=== PATIENT | female | born 1975 | race American Indian/Alaskan Native ===

== ENCOUNTER 2018-04-11 07:24 | Inpatient (IN) | payer MEDICAID ==
[2018-04-11] MEDS ORDERED: Sodium Chloride 0.9% 1,000 ML IV STA (07:50)
--- NOTE | 2018-04-11 07:55 | ED PDOC ---
Arrival/HPI - General Chief Complaint: Abdominal Pain Time Seen by Provider: 04/11/18 07:26 Historian: Patient - History of Present Illness Narrative History of Present Illness (Text): 04/11/18 07:51 A 42 year old female, whose past medical history includes diabetes and hypertension, presents to the emergency department complaining of stomach pain, nausea, vomiting, and diarrhea since 2 days ago. Patient reports pain is worse in her upper abdominal area and reports being seen at another institution. Patient states she is uncertain of her diagnosis and present for evaluation. Patient denies any fever, chills, shortness of breath, chest pain, urinary symptoms, back pain, neck pain, headache, dizziness, or any other complaints. PMD: Boom Luz Time/Duration: Other (2 days) Symptom Onset: Gradual Symptom Course: Unchanged Activities at Onset: Light Context: Other (another medical institution) Past Medical History - Provider Review Nursing Documentation Reviewed: Yes - Cardiac Hx Cardiac Disorders: Yes Hx Heart Murmur: Yes Hx Hypertension: Yes - Pulmonary Hx Respiratory Disorders: No - Neurological Hx Neurological Disorder: No - HEENT Hx HEENT Disorder: No - Renal Hx Renal Disorder: Yes Hx Kidney Stones: Yes - Endocrine/Metabolic Hx Endocrine Disorders: Yes Hx Diabetes Mellitus Type 2: Yes - Hematological/Oncological Hx Blood Disorders: Yes Hx Anemia: Yes Hx Blood Transfusions: Yes - Integumentary Hx Dermatological Disorder: No - Musculoskeletal/Rheumatological Hx Musculoskeletal Disorders: Yes Hx Back Pain: Yes - Gastrointestinal Hx Gastrointestinal Disorders: Yes Hx Vomiting: Yes - Genitourinary/Gynecological Hx Genitourinary Disorders: Yes Other/Comment: IRREGULAR MENSTRUATION - Psychiatric Hx Psychophysiologic Disorder: No Hx Substance Use: No - Surgical History Other/Comment: R/T KIDNEY STONE REMOVAL Family/Social History - Physician Review Nursing Documentation Reviewed: Yes Family/Social History: No Known Family HX Smoking Status: Never Smoked Hx Alcohol Use: Yes Frequency of alcohol use: Socially Hx Substance Use: No Allergies/Home Meds Allergies/Adverse Reactions: Allergies No Known Allergies Allergy (Verified 04/11/18 07:34) Home Medications: Home Meds Medication Instructions Recorded Confirmed Cholecalciferol (Vitamin D3) 1 cap PO Q7D 04/11/18 04/11/18 [Vitamin D3] Ferrous Sulfate [Feosol] 1 tab PO DAILY 04/11/18 04/11/18 Lisinopril [Prinivil] 10 mg PO DAILY 04/11/18 04/11/18 metFORMIN [glucOPHAGE] 500 mg PO BID 04/11/18 04/11/18 Review of Systems - Physician Review All systems were reviewed & negative as marked: Yes - Review of Systems Constitutional: absent: Fevers, Night Sweats Respiratory: absent: SOB Cardiovascular: absent: Other Gastrointestinal: Abdominal Pain (stomach pain), Diarrhea, Nausea, Vomiting Genitourinary Female: absent: Urine Output Changes Musculoskeletal: absent: Back Pain, Neck Pain Neurological: absent: Headache, Dizziness Physical Exam Vital Signs Reviewed: Yes Vital Signs Temp Pulse Resp BP Pulse Ox 04/11/18 07:34 97.6 F 86 17 144/86 98 Temperature: Afebrile Blood Pressure: Normal Respiratory Rate: Normal Appearance: Positive for: Well-Appearing - Systems Exam Head: Present: Atraumatic, Normocephalic Pupils: Present: PERRL Extroacular Muscles: Present: EOMI Conjunctiva: Present: Normal Neck: Present: Normal Range of Motion Respiratory/Chest: Present: Clear to Auscultation, Good Air Exchange. No: Respiratory Distress, Accessory Muscle Use Cardiovascular: Present: Regular Rate and Rhythm, Normal S1, S2. No: Murmurs Abdomen: Present: Tenderness (+abdomen tender, worse epigastric region), Other (+morbidly obese) Back: Present: Normal Inspection Upper Extremity: Present: Normal Inspection. No: Cyanosis, Edema Lower Extremity: Present: Normal Inspection. No: Edema Neurological: Present: GCS=15, CN II-XII Intact, Speech Normal Skin: Present: Warm, Dry, Normal Color. No: Rashes Psychiatric: Present: Alert, Oriented x 3, Normal Insight, Normal Concentration Medical Decision Making ED Course and Treatment: 04/11/18 07:54 Impression: 42 year old female presenting to the emergency department with stomach pain, nausea, vomiting, and diarrhea. ro gastritis pancreatitis Plan: -- Labs -- CBC -- COAGs -- Zofran -- Protonix -- HCG, qualitative urine -- Urinalysis -- Reassess and disposition Progress Notes: 04/11/18 10:30 Procedure: Ultrasound Time: 04/11/2018 10:16:39 Dictator: Con Holloway MD Impression: Hepatomegaly/hepatic steatosis without focal liver abnormality. Incidental finding(s): Trace fluid in the gallbladder fossa. In the absence of other gallbladder findings significance/etiology is unknown. 04/11/18 12:18 labs suggest pancreatitis. us added. accepted by hospitalist. futher imaging deffered to inpt team. - Medication Orders Current Medication Orders: Sodium Chloride (Sodium Chloride 0.9%) 1,000 mls @ 1,000 mls/hr IV .Q1H STA Stop: 04/11/18 08:49 Ondansetron HCl (Zofran Inj) 4 mg IVP STAT STA Stop: 04/11/18 07:51 Pantoprazole Sodium (Protonix Inj) 40 mg IVP STAT STA Stop: 04/11/18 07:51 - Scribe Statement The provider has reviewed the documentation as recorded by the Cecy Stuart All medical record entries made by the Cecy were at my direction and personally dictated by me. I have reviewed the chart and agree that the record accurately reflects my personal performance of the history, physical exam, medical decision making, and the department course for this patient. I have also personally directed, reviewed, and agree with the discharge instructions and disposition. Disposition/Present on Arrival - Present on Arrival Any Indicators Present on Arrival: No History of DVT/PE: No History of Uncontrolled Diabetes: Yes Urinary Catheter: No History of Decub. Ulcer: No History Surgical Site Infection Following: None - Disposition Have Diagnosis and Disposition been Completed?: Yes Diagnosis: Pancreatitis Disposition: HOSPITALIZED Disposition Time: 11:00 Patient Problems: Current Active Problems Problem Status Onset Pancreatitis Acute Condition: STABLE
[2018-04-11 08:33] LABS: BASO # 0.01 K/mm3 (0.0-2.0); BASO % 0.1 % (0.0-3.0); EOS # 0.1 (0.0-0.7); EOS % 1.2 % (1.5-5.0); GRAN # 4.5 (1.4-6.5); HEMOGLOBIN 10.7 g/dL (12.0-16.0); LYMPH # 1.3 (1.2-3.4); LYMPH % 19.5 % (22.0-35.0); MEAN CELL VOLUME 91.7 fl (80.0-105.0); MEAN CORPUSCULAR HEMOGLOBIN 29.5 pg (25.0-35.0); MEAN CORPUSCULAR HGB CONC 32.1 g/dl (31.0-37.0); MEAN PLATELET VOLUME 9.9 fl (7.0-11.0); MONO # 0.8 (0.1-0.6); MONO % 12.2 % (1.0-6.0); RBC 3.63 10^6/uL (3.5-6.1); RED CELL DISTRIBUTION WIDTH 18.2 % (11.5-14.5); WHITE BLOOD COUNT 6.7 10^3/uL (4.5-11.0)
[2018-04-11 08:42] LABS: ALBUMIN 4.2 g/dL (3.0-4.8); ALT/SGPT 58 U/L (7-56); AST/SGOT 80 U/L (14-36); BLOOD UREA NITROGEN 14 mg/dL (7-21); CALCIUM 9.3 mg/dL (8.4-10.5); GFR NON-AFRICAN AMERICAN > 60; INR 1.14; LIPASE 1090 U/L (23-300); PARTIAL THROMBOPLASTIN TIME 28.1 Seconds (25.1-36.5); PROTHROMBIN TIME 13.2 SECONDS (9.4-12.5)
[2018-04-11] MEDS ORDERED: Morphine 4 mg/ml ISec IVP STA (08:44)
[2018-04-11 10:16] LABS: HDL CHOLESTEROL 85 mg/dL (29-60)
--- NOTE | 2018-04-11 10:20 | US ---
Date of service: 04/11/2018 HISTORY: pancreatitis COMPARISON: None. TECHNIQUE: Sonographic evaluation of the abdomen. FINDINGS: LIVER: Measures 21.7 cm. Hepatopedal blood flow. Fatty infiltration manifest ultrasonographically as increased echogenicity of the liver parenchyma. No mass. No intrahepatic bile duct dilatation. GALLBLADDER: Unremarkable. No gallstones. COMMON BILE DUCT: Measures 5.4 mm. No stones. No dilatation.Incidental finding(s): Trace pericholecystic fluid. PANCREAS: Unremarkable as visualized. No mass. No ductal dilatation. RIGHT KIDNEY: Measures 5.5 x 10.1cm. Normal echogenicity. No calculus, mass, or hydronephrosis. LEFT KIDNEY: Measures 6.1 x 11.6cm. Normal echogenicity. No calculus, mass, or hydronephrosis. SPLEEN: Normal in size and contour. No mass. AORTA: No aneurysmal dilatation. IVC: Unremarkable. OTHER FINDINGS: None. IMPRESSION: Hepatomegaly/hepatic steatosis without focal liver abnormality. Incidental finding(s): Trace fluid in the gallbladder fossa. In the absence of other gallbladder findings significance/etiology is unknown.
[2018-04-11 10:26] LABS: LDL CHOLESTEROL 129 mg/dL (0-129)
[2018-04-11 10:46] VITALS: BMI 38.9
--- NOTE | 2018-04-11 11:11 | CP.PCM.HP ---
<Derrick Ferris - Last Filed: 04/11/18 12:34> History of Present Illness - History of Present Illness History of Present Illness: 42 year old female with past medical history of HTN, DM, iron deficiency anemia, and nephrolithiasis presents to the hospital for a 2 history of worsening abdominal pain. Patient states she was standing when she first noted her abdominal pain. Patient states her pain became worse and was not able to sleep overnight. Patient tried Motrin for pain but it did not help. Pain is rated at 10/10 and characterized as sharp. Patient states pain is diffusely throughout her abdomen and her back. Patient admits to having a similar presentation in the past which she was hospitalized for several days. Patient admits to drinking several beers 3 days ago. Patient admits to nausea, vomiting, diarrhea, and dysuria at this time. Denies chest pain, shortness of breath, fever, chills. PMH: As above Surgical Hx: None Family Hx: Cancer, unknown which cancers specifically Social Hx: Denies illicit drug use and tobacco use. Occasional alcohol use Allergies: NKDA Medications: Lisinopril, Metformin Present on Admission - Present on Admission Any Indicators Present on Admission: No Review of Systems - Review of Systems Review of Systems: 12 point ROS as per HPI, otherwise negative Past Patient History - Past Social History Smoking Status: Never Smoked - CARDIAC Hx Cardiac Disorders: Yes Hx Heart Murmur: Yes Hx Hypertension: Yes - PULMONARY Hx Respiratory Disorders: No - NEUROLOGICAL Hx Neurological Disorder: No - HEENT Hx HEENT Problems: No - RENAL Hx Chronic Kidney Disease: Yes Hx Kidney Stones: Yes - ENDOCRINE/METABOLIC Hx Endocrine Disorders: Yes Hx Diabetes Mellitus Type 2: Yes - HEMATOLOGICAL/ONCOLOGICAL Hx Blood Disorders: Yes Hx Anemia: Yes Hx Blood Transfusions: Yes - INTEGUMENTARY Hx Dermatological Problems: No - MUSCULOSKELETAL/RHEUMATOLOGICAL Hx Musculoskeletal Disorders: Yes Hx Back Pain: Yes - GASTROINTESTINAL Hx Gastrointestinal Disorders: Yes Hx Vomiting: Yes - GENITOURINARY/GYNECOLOGICAL Hx Genitourinary Disorders: Yes Other/Comment: IRREGULAR MENSTRUATION - PSYCHIATRIC Hx Psychophysiologic Disorder: No Hx Substance Use: No - SURGICAL HISTORY Other/Comment: R/T KIDNEY STONE REMOVAL Meds Allergies/Adverse Reactions: Allergies Allergy/AdvReac Type Severity Reaction Status Date / Time No Known Allergies Allergy Verified 04/11/18 07:34 Physical Exam - Constitutional Appears: Non-toxic, No Acute Distress - Head Exam Head Exam: ATRAUMATIC, NORMAL INSPECTION, NORMOCEPHALIC - Eye Exam Eye Exam: EOMI, Normal appearance - ENT Exam ENT Exam: Mucous Membranes Moist - Respiratory Exam Respiratory Exam: Decreased Breath Sounds, NORMAL BREATHING PATTERN. absent: Rhonchi, Wheezes, Respiratory Distress - Cardiovascular Exam Cardiovascular Exam: RRR, +S1, +S2 - GI/Abdominal Exam GI & Abdominal Exam: Normal Bowel Sounds, Soft, Tenderness (Diffuse). absent: Distended, Guarding, Rebound - Extremities Exam Extremities exam: Positive for: normal inspection. Negative for: calf tenderness, pedal edema - Back Exam Back exam: CVA tenderness (L), CVA tenderness (R) Additional comments: Diffuse back pain - Neurological Exam Neurological exam: Alert, CN II-XII Intact, Oriented x3 - Psychiatric Exam Psychiatric exam: Normal Affect, Normal Mood - Skin Skin Exam: Intact, Normal Color, Warm Results - Vital Signs Recent Vital Signs: Last Vital Signs Temp 98.1 F 04/11/18 10:34 Pulse 90 04/11/18 10:34 Resp 17 04/11/18 07:34 BP 131/92 H 04/11/18 10:34 Pulse Ox 95 04/11/18 10:34 - Labs Result Diagrams: 04/11/18 08:10 04/11/18 08:10 Labs: Laboratory Results - last 24 hr 04/11/18 04/11/18 04/11/18 08:10 08:10 08:10 WBC 6.7 RBC 3.63 Hgb 10.7 L Hct 33.3 L MCV 91.7 MCH 29.5 MCHC 32.1 RDW 18.2 H Plt Count 144 MPV 9.9 Gran % 67.0 Lymph % (Auto) 19.5 L Sawyer % (Auto) 12.2 H Eos % (Auto) 1.2 L Baso % (Auto) 0.1 Gran # 4.50 Lymph # (Auto) 1.3 Sawyer # (Auto) 0.8 H Eos # (Auto) 0.1 Baso # (Auto) 0.01 PT 13.2 H INR 1.14 APTT 28.1 Sodium 130 L Potassium 4.5 Chloride 92 L Carbon Dioxide 26 Anion Gap 17 BUN 14 Creatinine 0.6 L Est GFR ( Amer) > 60 Est GFR (Non-Af Amer) > 60 Random Glucose 318 H* Calcium 9.3 Magnesium 1.8 Total Bilirubin 2.5 H Direct Bilirubin AST 80 H ALT 58 H Alkaline Phosphatase 267 H Total Protein 8.6 H Albumin 4.2 Globulin 4.4 Albumin/Globulin Ratio 1.0 L Triglycerides Cholesterol LDL Cholesterol Direct HDL Cholesterol Lipase 1090 H Beta HCG, Quant Alcohol, Quantitative 04/11/18 04/11/18 04/11/18 08:10 08:44 10:00 WBC RBC Hgb Hct MCV MCH MCHC RDW Plt Count MPV Gran % Lymph % (Auto) Sawyer % (Auto) Eos % (Auto) Baso % (Auto) Gran # Lymph # (Auto) Sawyer # (Auto) Eos # (Auto) Baso # (Auto) PT INR APTT Sodium Potassium Chloride Carbon Dioxide Anion Gap BUN Creatinine Est GFR ( Amer) Est GFR (Non-Af Amer) Random Glucose Calcium Magnesium Total Bilirubin Direct Bilirubin 1.5 H AST ALT Alkaline Phosphatase Total Protein Albumin Globulin Albumin/Globulin Ratio Triglycerides 120 Cholesterol 236 H LDL Cholesterol Direct 129 HDL Cholesterol 85 H Lipase Beta HCG, Quant < 2.39 Alcohol, Quantitative 04/11/18 10:00 WBC RBC Hgb Hct MCV MCH MCHC RDW Plt Count MPV Gran % Lymph % (Auto) Sawyer % (Auto) Eos % (Auto) Baso % (Auto) Gran # Lymph # (Auto) Sawyer # (Auto) Eos # (Auto) Baso # (Auto) PT INR APTT Sodium Potassium Chloride Carbon Dioxide Anion Gap BUN Creatinine Est GFR ( Amer) Est GFR (Non-Af Amer) Random Glucose Calcium Magnesium Total Bilirubin Direct Bilirubin AST ALT Alkaline Phosphatase Total Protein Albumin Globulin Albumin/Globulin Ratio Triglycerides Cholesterol LDL Cholesterol Direct HDL Cholesterol Lipase Beta HCG, Quant Alcohol, Quantitative < 10 Assessment & Plan - Assessment and Plan (Free Text) Plan: 42 year old female with past medical history of HTN, DM, iron deficiency anemia, and Nephrolithiasis presenting for pancreatitis. Pancreatitis NS @ 150 Morphine 3 mg q4h Abdomen US with no cholelithiasis. CBD within normal limits Lipid panel within normal limits Zofran NPO Will consider CT abdomen/pelvis if patient worsens Will obtain UA, urine drug screen GI consult, Dr. Bae Transaminitis Hepatitis panel Abdomen US normal Recheck in AM HTN Restart home lisinopril DM ISS, low Nephrolithiasis Questionable history of stent placement or chronic stones Will obtain UA Prophylaxis SCDs Protonix [place], PGY-3 <Brent Horan - Last Filed: 04/11/18 13:32> Results - Vital Signs Recent Vital Signs: Last Vital Signs Temp 98.1 F 04/11/18 11:02 Pulse 90 04/11/18 11:02 Resp 17 04/11/18 11:02 BP 135/92 H 04/11/18 11:02 Pulse Ox 95 04/11/18 11:02 - Labs Result Diagrams: 04/11/18 08:10 04/11/18 08:10 Labs: Laboratory Results - last 24 hr 04/11/18 04/11/18 04/11/18 08:10 08:10 08:10 WBC 6.7 RBC 3.63 Hgb 10.7 L Hct 33.3 L MCV 91.7 MCH 29.5 MCHC 32.1 RDW 18.2 H Plt Count 144 MPV 9.9 Gran % 67.0 Lymph % (Auto) 19.5 L Sawyer % (Auto) 12.2 H Eos % (Auto) 1.2 L Baso % (Auto) 0.1 Gran # 4.50 Lymph # (Auto) 1.3 Sawyer # (Auto) 0.8 H Eos # (Auto) 0.1 Baso # (Auto) 0.01 PT 13.2 H INR 1.14 APTT 28.1 Sodium 130 L Potassium 4.5 Chloride 92 L Carbon Dioxide 26 Anion Gap 17 BUN 14 Creatinine 0.6 L Est GFR ( Amer) > 60 Est GFR (Non-Af Amer) > 60 Random Glucose 318 H* Calcium 9.3 Magnesium 1.8 Total Bilirubin 2.5 H Direct Bilirubin AST 80 H ALT 58 H Alkaline Phosphatase 267 H Total Protein 8.6 H Albumin 4.2 Globulin 4.4 Albumin/Globulin Ratio 1.0 L Triglycerides Cholesterol LDL Cholesterol Direct HDL Cholesterol Lipase 1090 H Beta HCG, Quant Alcohol, Quantitative 04/11/18 04/11/18 04/11/18 08:10 08:44 10:00 WBC RBC Hgb Hct MCV MCH MCHC RDW Plt Count MPV Gran % Lymph % (Auto) Sawyer % (Auto) Eos % (Auto) Baso % (Auto) Gran # Lymph # (Auto) Sawyer # (Auto) Eos # (Auto) Baso # (Auto) PT INR APTT Sodium Potassium Chloride Carbon Dioxide Anion Gap BUN Creatinine Est GFR ( Amer) Est GFR (Non-Af Amer) Random Glucose Calcium Magnesium Total Bilirubin Direct Bilirubin 1.5 H AST ALT Alkaline Phosphatase Total Protein Albumin Globulin Albumin/Globulin Ratio Triglycerides 120 Cholesterol 236 H LDL Cholesterol Direct 129 HDL Cholesterol 85 H Lipase Beta HCG, Quant < 2.39 Alcohol, Quantitative 04/11/18 10:00 WBC RBC Hgb Hct MCV MCH MCHC RDW Plt Count MPV Gran % Lymph % (Auto) Sawyer % (Auto) Eos % (Auto) Baso % (Auto) Gran # Lymph # (Auto) Sawyer # (Auto) Eos # (Auto) Baso # (Auto) PT INR APTT Sodium Potassium Chloride Carbon Dioxide Anion Gap BUN Creatinine Est GFR ( Amer) Est GFR (Non-Af Amer) Random Glucose Calcium Magnesium Total Bilirubin Direct Bilirubin AST ALT Alkaline Phosphatase Total Protein Albumin Globulin Albumin/Globulin Ratio Triglycerides Cholesterol LDL Cholesterol Direct HDL Cholesterol Lipase Beta HCG, Quant Alcohol, Quantitative < 10 Attending/Attestation - Attestation I have personally seen and examined this patient.: Yes I have fully participated in the care of the patient.: Yes I have reviewed all pertinent clinical information: Yes Notes (Text): 04/11/18 13:27 42 year old female with past medical history of hypertension, diabetes and nephrolithiasis who presents abdominal pain radiating to back and nausea/vomiting x 3 days. Found to have elevated lipase and LFTs. Also admits to recent alcohol use few days prior. Consider alcohol pancreatitis. US abdomen reviewed showed fatty liver without cholelithiasis. Will keep NPO with IV fluids and analgesics. GI evaluation is requested. Will request for UA given prior history of nephrolithiasis although ultrasound was not suggestive of nephrolithiasis. Will monitor LFTs and obtain hepatitis panel. Patient was counselled on alcohol abstinence. Brent Horan MD Hospitalist.
[2018-04-11] MEDS: Morphine 4 mg/ml ISec IVP PRN ×4 (11:37→23:02)
[2018-04-11] MEDS: Sodium Chloride 0.9% 1,000 ML IV SCH (11:38)
[2018-04-11] MEDS: Insulin Reg-LOW-Coverage SC SCH ×3 (11:39→22:34)
--- NOTE | 2018-04-11 12:13 | CP.PCM.CON ---
History of Present Illness - History of Present Illness History of Present Illness: Asked by hospitalist team for a GI consultation on this patient. 42 year old female with history of obesity (BMI 39), DM, HTN, who presents to hospital with complaint of progressive abdominal pain which started 2 days ago. She endorses a sharp, 10/10 intensity epigastric pain that radiates to RUQ/back and worse after meal consumption. This was associated with multiple episodes of non- bloody emesis over the past 2 days. She denies fever/chills, weight loss, rectal bleeding, sick contacts, or change in bowel habits. She does report to heavy ETOH consumption the day before pain symptoms started and drinks ETOH 2-3 times per week. She also admits to similar prior episode a few months back but is unaware of any prior pancreatic abnormalities. No prior endoscopic evaluation. Social history: non-smoker, "social" ETOH use Family history: mother (ovarian cancer) Review of Systems - Review of Systems Review of Systems: - All other comprehensive 12 point review of systems performed, negative - Cardiovascular Cardiovascular: absent: Acrocyanosis, Chest Pain, Chest Pain at Rest, Chest Pain with Activity, Claudication, Diaphoresis, Dyspnea, Dyspnea on Exertion, Edema, Irregular Heart Rhythm, Pain Radiating to Arm/Neck/Jaw, Leg Edema, Leg Ulcers, Lightheadedness, Orthopnea, Palpitations, Paroxysmal Nocturnal Dyspnea, Pedal Edema, Radiating Pain, Rapid Heart Rate, Slow Heart Rate, Syncope, Other - Respiratory Respiratory: absent: Cough, Dyspnea, Hemoptysis, Dyspnea on Exertion, Wheezing, Snoring, Stridor, Pain on Inspiration, Chest Congestion, Excessive Mucous Production, Change in Mucous Color, Pain with Coughing, Other - Gastrointestinal Gastrointestinal: Abdominal Pain, Nausea, Vomiting - Musculoskeletal Musculoskeletal: absent: Abnormal Gait, Arthralgias, Atrophy, Back Pain, Deformity, Joint Swelling, Limited Range of Motion, Loss of Height, Muscle Cramps, Muscle Weakness, Myalgias, Neck Pain, Numbness, Radiating Pain into Limb, Stiffness, Tingling, Other - Neurological Neurological: absent: Abnormal Gait, Abnormal Hearing, Abnormal Movements, Abnormal Speech, Behavioral Changes, Burning Sensations, Confusion, Convulsions, Disequilibrium, Dizziness, Numbness, Focal Weakness, Frequent Falls, Headaches, Lack of Coordination, Loss of Vision, Memory Loss, Paresthesias, Radicular Pain, Restless Legs, Sensory Deficit, Syncope, Tingling, Tremor, Vertigo, Weakness, Other Visual Disturbances, Other Past Patient History - Past Social History Smoking Status: Never Smoked - CARDIAC Hx Cardiac Disorders: Yes Hx Heart Murmur: Yes Hx Hypertension: Yes - PULMONARY Hx Respiratory Disorders: No - NEUROLOGICAL Hx Neurological Disorder: No - HEENT Hx HEENT Problems: No - RENAL Hx Chronic Kidney Disease: Yes Hx Kidney Stones: Yes - ENDOCRINE/METABOLIC Hx Endocrine Disorders: Yes Hx Diabetes Mellitus Type 2: Yes - HEMATOLOGICAL/ONCOLOGICAL Hx Blood Disorders: Yes Hx Anemia: Yes Hx Blood Transfusions: Yes - INTEGUMENTARY Hx Dermatological Problems: No - MUSCULOSKELETAL/RHEUMATOLOGICAL Hx Musculoskeletal Disorders: Yes Hx Back Pain: Yes - GASTROINTESTINAL Hx Gastrointestinal Disorders: Yes Hx Vomiting: Yes - GENITOURINARY/GYNECOLOGICAL Hx Genitourinary Disorders: Yes Other/Comment: IRREGULAR MENSTRUATION - PSYCHIATRIC Hx Psychophysiologic Disorder: No Hx Substance Use: No - SURGICAL HISTORY Other/Comment: R/T KIDNEY STONE REMOVAL Meds Allergies/Adverse Reactions: Allergies Allergy/AdvReac Type Severity Reaction Status Date / Time No Known Allergies Allergy Verified 04/11/18 07:34 - Medications Medications: Current Medications Sodium Chloride (Sodium Chloride 0.9%) 1,000 mls @ 150 mls/hr IV .Q6H40M [facility] Last Admin: 04/11/18 11:38 Dose: 150 mls/hr Insulin Human Regular (Humulin R Low) 0 units SC ACHS [facility]; Protocol Last Admin: 04/11/18 11:39 Dose: 3 units Lisinopril (Zestril) 10 mg PO DAILY [facility] Morphine Sulfate (Morphine) 3 mg IVP Q4H PRN PRN Reason: Pain, severe (8-10) Last Admin: 04/11/18 11:37 Dose: 3 mg Ondansetron HCl (Zofran Inj) 4 mg IVP Q4H PRN PRN Reason: Nausea/Vomiting Pantoprazole Sodium (Protonix Inj) 40 mg IVP DAILY [facility] Physical Exam - Constitutional Appears: Non-toxic, No Acute Distress - Head Exam Head Exam: NORMAL INSPECTION - Eye Exam Eye Exam: EOMI, Normal appearance - ENT Exam ENT Exam: Mucous Membranes Moist - Respiratory Exam Respiratory Exam: Clear to Auscultation Bilateral - Cardiovascular Exam Cardiovascular Exam: REGULAR RHYTHM, +S1, +S2 - GI/Abdominal Exam GI & Abdominal Exam: Normal Bowel Sounds, Soft, Tenderness Additional comments: obese, epigastric and melchor-umbilical tenderness to palpation, no rebound/guarding no palpable hepato/splenomegaly - Extremities Exam Extremities exam: Positive for: normal inspection - Neurological Exam Neurological exam: Alert, CN II-XII Intact, Oriented x3, Reflexes Normal - Psychiatric Exam Psychiatric exam: Normal Affect, Normal Mood - Skin Skin Exam: Dry, Intact, Normal Color, Warm Results - Vital Signs Recent Vital Signs: Last Vital Signs Temp 98.1 F 04/11/18 11:02 Pulse 90 04/11/18 11:02 Resp 17 04/11/18 11:02 BP 135/92 H 04/11/18 11:02 Pulse Ox 95 04/11/18 11:02 - Labs Result Diagrams: 04/11/18 08:10 04/11/18 08:10 Labs: Laboratory Results - last 24 hr 04/11/18 04/11/18 04/11/18 08:10 08:10 08:10 WBC 6.7 RBC 3.63 Hgb 10.7 L Hct 33.3 L MCV 91.7 MCH 29.5 MCHC 32.1 RDW 18.2 H Plt Count 144 MPV 9.9 Gran % 67.0 Lymph % (Auto) 19.5 L [place] % (Auto) 12.2 H Eos % (Auto) 1.2 L Baso % (Auto) 0.1 Gran # 4.50 Lymph # (Auto) 1.3 [place] # (Auto) 0.8 H Eos # (Auto) 0.1 Baso # (Auto) 0.01 PT 13.2 H INR 1.14 APTT 28.1 Sodium 130 L Potassium 4.5 Chloride 92 L Carbon Dioxide 26 Anion Gap 17 BUN 14 Creatinine 0.6 L Est GFR ( Amer) > 60 Est GFR (Non-Af Amer) > 60 Random Glucose 318 H* Calcium 9.3 Magnesium 1.8 Total Bilirubin 2.5 H Direct Bilirubin AST 80 H ALT 58 H Alkaline Phosphatase 267 H Total Protein 8.6 H Albumin 4.2 Globulin 4.4 Albumin/Globulin Ratio 1.0 L Triglycerides Cholesterol LDL Cholesterol Direct HDL Cholesterol Lipase 1090 H Beta HCG, Quant Alcohol, Quantitative 04/11/18 04/11/18 04/11/18 08:10 08:44 10:00 WBC RBC Hgb Hct MCV MCH MCHC RDW Plt Count MPV Gran % Lymph % (Auto) [place] % (Auto) Eos % (Auto) Baso % (Auto) Gran # Lymph # (Auto) [place] # (Auto) Eos # (Auto) Baso # (Auto) PT INR APTT Sodium Potassium Chloride Carbon Dioxide Anion Gap BUN Creatinine Est GFR ( Amer) Est GFR (Non-Af Amer) Random Glucose Calcium Magnesium Total Bilirubin Direct Bilirubin 1.5 H AST ALT Alkaline Phosphatase Total Protein Albumin Globulin Albumin/Globulin Ratio Triglycerides 120 Cholesterol 236 H LDL Cholesterol Direct 129 HDL Cholesterol 85 H Lipase Beta HCG, Quant < 2.39 Alcohol, Quantitative 04/11/18 10:00 WBC RBC Hgb Hct MCV MCH MCHC RDW Plt Count MPV Gran % Lymph % (Auto) [place] % (Auto) Eos % (Auto) Baso % (Auto) Gran # Lymph # (Auto) [place] # (Auto) Eos # (Auto) Baso # (Auto) PT INR APTT Sodium Potassium Chloride Carbon Dioxide Anion Gap BUN Creatinine Est GFR ( Amer) Est GFR (Non-Af Amer) Random Glucose Calcium Magnesium Total Bilirubin Direct Bilirubin AST ALT Alkaline Phosphatase Total Protein Albumin Globulin Albumin/Globulin Ratio Triglycerides Cholesterol LDL Cholesterol Direct HDL Cholesterol Lipase Beta HCG, Quant Alcohol, Quantitative < 10 Assessment & Plan - Assessment and Plan (Free Text) Assessment: DM HTN Obesity Abdominal pain Transaminitis US reviewed by me showing normal caliber CBD without presence of cholelithiasis Plan: - NPO - Continue with IVF hydration therapy, supportive care - Anti-emetic therapy PRN - Pain control - Obtain viral hepatitis panel and monitor LFTs. Lipid profile reviewed, TAG normal. - If pain persists despite conservative management, would suggest additional cross sectional imaging for further evaluation
[2018-04-11 15:25] LABS: HEPATITIS B SURFACE AG Negative (NEGATIVE)
[2018-04-11 15:31] LABS: HEPATITIS A IGM NEGATIVE (NEGATIVE); HEPATITIS B CORE AB NEGATIVE (NEGATIVE)
[2018-04-11 15:43] LABS: HEPATITIS C ANTIBODY NEGATIVE (NEGATIVE)
[2018-04-12] MEDS: Morphine 4 mg/ml ISec IVP PRN ×4 (02:44→14:06)
[2018-04-12 06:25] LABS: HEMOGLOBIN 10.6 g/dL (12.0-16.0); MEAN CORPUSCULAR HEMOGLOBIN 28.7 pg (25.0-35.0); MEAN CORPUSCULAR HGB CONC 30.5 g/dl (31.0-37.0); MEAN PLATELET VOLUME 10.1 fl (7.0-11.0); RBC 3.69 10^6/uL (3.5-6.1); RED CELL DISTRIBUTION WIDTH 18.3 % (11.5-14.5); WHITE BLOOD COUNT 5.6 10^3/uL (4.5-11.0)
[2018-04-12 06:47] LABS: ALBUMIN 3.6 g/dL (3.0-4.8); ALT/SGPT 49 U/L (7-56); AST/SGOT 63 U/L (14-36); BLOOD UREA NITROGEN 9 mg/dL (7-21); CALCIUM 8.6 mg/dL (8.4-10.5); GFR NON-AFRICAN AMERICAN > 60
[2018-04-12] MEDS: Insulin Reg-LOW-Coverage SC SCH ×4 (08:50→21:31)
--- NOTE | 2018-04-12 11:38 | CP.PCM.PN ---
<Rajwinder Pham - Last Filed: 04/12/18 11:35> Subjective - Date & Time of Evaluation Date of Evaluation: 04/12/18 Time of Evaluation: 09:13 - Subjective Subjective: Rajwinder Pham PGY1 Hospital Progress Note Patient seen and examined at bedside. Patient admitted to chest pain yesterday evening, EKG showed NSR at 75bpm with no ST changes in troponin was negative. Admits to epigastric and RUQ abdominal pain. Pain is unchanged from yesterday. Offers no new complaints today. Last bowel movement was yesterday afternoon. Patient would like to try clear liquid diet. Objective - Vital Signs/Intake and Output Vital Signs (last 24 hours): Temp Pulse Resp BP Pulse Ox 98.4 F 78 19 148/98 H 99 04/12/18 08:35 04/12/18 08:35 04/12/18 08:35 04/12/18 08:35 04/12/18 08:35 Intake and Output: 04/12/18 04/12/18 06:59 18:59 Intake Total 1800 Balance 1800 - Medications Medications: Current Medications Sodium Chloride (Sodium Chloride 0.9%) 1,000 mls @ 150 mls/hr IV .Q6H40M [facility] Last Admin: 04/11/18 11:38 Dose: 150 mls/hr Insulin Human Regular (Humulin R Low) 0 units SC ACHS [facility]; Protocol Last Admin: 04/12/18 08:50 Dose: 2 units Lisinopril (Zestril) 10 mg PO DAILY [facility] Last Admin: 04/12/18 10:02 Dose: 10 mg Morphine Sulfate (Morphine) 3 mg IVP Q4H PRN PRN Reason: Pain, severe (8-10) Last Admin: 04/12/18 10:02 Dose: 3 mg Ondansetron HCl (Zofran Inj) 4 mg IVP Q4H PRN PRN Reason: Nausea/Vomiting Last Admin: 04/11/18 22:53 Dose: 4 mg Pantoprazole Sodium (Protonix Inj) 40 mg IVP DAILY [facility] Last Admin: 04/12/18 10:01 Dose: 40 mg - Labs Labs: 04/12/18 06:00 04/12/18 06:00 PT 13.2 SECONDS (9.4-12.5) H 04/11/18 08:10 INR 1.14 04/11/18 08:10 APTT 28.1 Seconds (25.1-36.5) 04/11/18 08:10 - Constitutional Appears: No Acute Distress - Head Exam Head Exam: ATRAUMATIC, NORMAL INSPECTION - Eye Exam Eye Exam: EOMI Pupil Exam: PERRL - ENT Exam ENT Exam: Mucous Membranes Moist - Respiratory Exam Respiratory Exam: NORMAL BREATHING PATTERN. absent: Accessory Muscle Use, Clear to Ausculation Bilateral, Wheezes, Respiratory Distress - Cardiovascular Exam Cardiovascular Exam: REGULAR RHYTHM, +S1 - GI/Abdominal Exam GI & Abdominal Exam: Soft, Normal Bowel Sounds. absent: Firm, Guarding Additional comments: erwin, obturator, rovsing signs are negative. Epigastric and RUQ tenderness appreciated with light palpation - Extremities Exam Extremities Exam: absent: Calf Tenderness, Pedal Edema, Tenderness - Back Exam Back Exam: NORMAL INSPECTION. absent: CVA tenderness (L), CVA tenderness (R) - Neurological Exam Neurological Exam: Alert, Awake, CN II-XII Intact - Skin Skin Exam: Normal Color, Warm Assessment and Plan - Assessment and Plan (Free Text) Assessment: 42 year old female with past medical history of HTN, DM, iron deficiency anemia, and Nephrolithiasis presenting for pancreatitis. Plan: Pancreatitis -likely 2/2 alcohol -trial of clear liquid diet for lunch today -as diet as tolerated -morphine prn -NS 150 cc/hr -zofran prn -Abdomen US with no cholelithiasis. CBD within normal limits -lipid panel within normal limits, no TG elevation Will obtain UA, urine drug screen -GI consult, Dr. Bae Hx of alcohol use -alcohol level <10 on admission -CIWA -ativan prn Transaminitis -LFT, Tbili downtrending -Hepatitis panel normal -Abdomen US normal Hx HTN - home lisinopril Hx DM -ISS, low PPX/Diet -SCDs, protonix -CLD Patient seen and case discussed with attending, Dr. Pineda <Christopher Pineda - Last Filed: 04/12/18 18:02> Objective - Vital Signs/Intake and Output Vital Signs (last 24 hours): Temp Pulse Resp BP Pulse Ox 98.7 F 87 20 129/85 97 04/12/18 16:50 04/12/18 16:50 04/12/18 16:50 04/12/18 16:50 04/12/18 16:50 Intake and Output: 04/12/18 04/12/18 06:59 18:59 Intake Total 1800 Balance 1800 - Medications Medications: Current Medications Sodium Chloride (Sodium Chloride 0.9%) 1,000 mls @ 150 mls/hr IV .Q6H40M [facility] Last Admin: 04/12/18 16:15 Dose: 150 mls/hr Insulin Human Regular (Humulin R Low) 0 units SC ACHS [facility]; Protocol Last Admin: 04/12/18 17:45 Dose: 2 units Lisinopril (Zestril) 10 mg PO DAILY [facility] Last Admin: 04/12/18 10:02 Dose: 10 mg Lorazepam (Ativan) 2 mg IVP Q4 PRN; Protocol PRN Reason: Symptoms of alcohol withdrawl Last Admin: 04/12/18 15:53 Dose: 2 mg Morphine Sulfate (Morphine) 0.5 mg IVP Q4H PRN PRN Reason: Pain, severe (8-10) Ondansetron HCl (Zofran Inj) 4 mg IVP Q4H PRN PRN Reason: Nausea/Vomiting Last Admin: 04/11/18 22:53 Dose: 4 mg Pantoprazole Sodium (Protonix Inj) 40 mg IVP DAILY [facility] Last Admin: 04/12/18 10:01 Dose: 40 mg - Labs Labs: 04/12/18 06:00 04/12/18 06:00 PT 13.2 SECONDS (9.4-12.5) H 04/11/18 08:10 INR 1.14 04/11/18 08:10 APTT 28.1 Seconds (25.1-36.5) 04/11/18 08:10 Attending/Attestation - Attestation I have personally seen and examined this patient.: Yes I have fully participated in the care of the patient.: Yes I have reviewed all pertinent clinical information, including history, physical exam and plan: Yes Notes (Text): 04/12/18 17:59 Medical record note made by the resident after discussion with my direction and input after the patient was personally seen and examined by me. I have reviewed the chart and agree that the record accurately reflects by personal performance of the history, physical exam, data review, and medical decision-making, in the course for the patient. I have also personally directed the plan of care. 42 year old female with past medical history of HTN, DM, iron deficiency anemia, and Nephrolithiasis was admitted with alcoholic pancreatitis, Patient has epigastric tenderness, on clear liquid diet. LFT are coming down. GI evaluation is appreciated. MRCP has been ordered to rule out cholidicolithiasis as patient is still c/o lot of pain. Management plan was discussed in detail with patient. Education was provided
--- NOTE | 2018-04-12 12:42 | CP.PCM.PN ---
<Peyman Schwartz - Last Filed: 04/12/18 16:29> Subjective - Date & Time of Evaluation Date of Evaluation: 04/12/18 Time of Evaluation: 09:00 - Subjective Subjective: PGY6 GI Fellow Progress Note Patient seen and examined bedside this morning. The patient states she is having significant abdominal and back pain today, though improved modestly from admission. Also admits to constipation, bloating. 12 system ROS performed and negative except where stated Objective - Vital Signs/Intake and Output Vital Signs (last 24 hours): Temp Pulse Resp BP Pulse Ox 98.4 F 78 19 148/98 H 99 04/12/18 08:35 04/12/18 08:35 04/12/18 08:35 04/12/18 08:35 04/12/18 08:35 Intake and Output: 04/12/18 04/12/18 06:59 18:59 Intake Total 1800 Balance 1800 - Medications Medications: Current Medications Sodium Chloride (Sodium Chloride 0.9%) 1,000 mls @ 150 mls/hr IV .Q6H40M [facility] Last Admin: 04/11/18 11:38 Dose: 150 mls/hr Insulin Human Regular (Humulin R Low) 0 units SC ACHS [facility]; Protocol Last Admin: 04/12/18 08:50 Dose: 2 units Lisinopril (Zestril) 10 mg PO DAILY [facility] Last Admin: 04/12/18 10:02 Dose: 10 mg Lorazepam (Ativan) 2 mg IVP Q4 PRN; Protocol PRN Reason: Symptoms of alcohol withdrawl Morphine Sulfate (Morphine) 3 mg IVP Q4H PRN PRN Reason: Pain, severe (8-10) Last Admin: 04/12/18 10:02 Dose: 3 mg Ondansetron HCl (Zofran Inj) 4 mg IVP Q4H PRN PRN Reason: Nausea/Vomiting Last Admin: 04/11/18 22:53 Dose: 4 mg Pantoprazole Sodium (Protonix Inj) 40 mg IVP DAILY [facility] Last Admin: 04/12/18 10:01 Dose: 40 mg - Labs Labs: 04/12/18 06:00 04/12/18 06:00 PT 13.2 SECONDS (9.4-12.5) H 04/11/18 08:10 INR 1.14 04/11/18 08:10 APTT 28.1 Seconds (25.1-36.5) 04/11/18 08:10 - Constitutional Appears: Non-toxic, No Acute Distress - Eye Exam Eye Exam: EOMI, PERRL - ENT Exam ENT Exam: Mucous Membranes Moist - Respiratory Exam Respiratory Exam: Clear to Ausculation Bilateral. absent: Rales, Rhonchi, Wheezes - Cardiovascular Exam Cardiovascular Exam: RRR, +S1, +S2 - GI/Abdominal Exam GI & Abdominal Exam: Guarding, Soft, Tenderness (diffusely), Normal Bowel Sounds. absent: Distended, Firm, Rigid, Organomegaly - Extremities Exam Extremities Exam: Normal Inspection. absent: Pedal Edema - Neurological Exam Neurological Exam: Alert, Awake, Oriented x3 - Psychiatric Exam Psychiatric exam: Normal Affect, Normal Mood - Skin Skin Exam: Dry, Warm Assessment and Plan - Assessment and Plan (Free Text) Assessment: Patient is a 42yo female with PMHx significant for obseity, diabetes and hypertension who presented with abdominal pain -Acute alcohol-induced pancreatitis -Elevated LFTs -Obesity -DM -HTN Plan: -Patient requesting advancement in diet despite ongoing pain - will try clear liquids today -Given persistence of symptoms and abnormal LFTs, will order MRI with MRCP w/o contrast for further evaluation -Mixed pattern LFT elevation can be seen in setting of EtOH use - all downtrending -Viral hepatitis panel negative -U/S without evidence of gallstones, CBD obstruction -Analgesia and antiemetic therapy per primary service <Sg Bae Y - Last Filed: 04/12/18 16:40> Objective - Vital Signs/Intake and Output Vital Signs (last 24 hours): Temp Pulse Resp BP Pulse Ox 98.4 F 78 19 148/98 H 99 04/12/18 08:35 04/12/18 08:35 04/12/18 08:35 04/12/18 08:35 04/12/18 08:35 Intake and Output: 04/12/18 04/12/18 06:59 18:59 Intake Total 1800 Balance 1800 - Medications Medications: Current Medications Sodium Chloride (Sodium Chloride 0.9%) 1,000 mls @ 150 mls/hr IV .Q6H40M [facility] Last Admin: 04/12/18 16:15 Dose: 150 mls/hr Insulin Human Regular (Humulin R Low) 0 units SC ACHS [facility]; Protocol Last Admin: 04/12/18 12:43 Dose: 2 units Lisinopril (Zestril) 10 mg PO DAILY [facility] Last Admin: 04/12/18 10:02 Dose: 10 mg Lorazepam (Ativan) 2 mg IVP Q4 PRN; Protocol PRN Reason: Symptoms of alcohol withdrawl Last Admin: 04/12/18 15:53 Dose: 2 mg Morphine Sulfate (Morphine) 3 mg IVP Q4H PRN PRN Reason: Pain, severe (8-10) Last Admin: 04/12/18 14:06 Dose: 3 mg Ondansetron HCl (Zofran Inj) 4 mg IVP Q4H PRN PRN Reason: Nausea/Vomiting Last Admin: 04/11/18 22:53 Dose: 4 mg Pantoprazole Sodium (Protonix Inj) 40 mg IVP DAILY [facility] Last Admin: 04/12/18 10:01 Dose: 40 mg - Labs Labs: 04/12/18 06:00 04/12/18 06:00 PT 13.2 SECONDS (9.4-12.5) H 04/11/18 08:10 INR 1.14 04/11/18 08:10 APTT 28.1 Seconds (25.1-36.5) 04/11/18 08:10 Attending/Attestation - Attestation I have personally seen and examined this patient.: Yes I have fully participated in the care of the patient.: Yes I have reviewed all pertinent clinical information, including history, physical exam and plan: Yes Notes (Text): 04/12/18 16:38 I have seen and examined patient with GI fellow. No acute events overnight, she is seen resting in bed. She continues to report ongoing epigastric abdominal pain, 8/10 intensity. She denies nausea, vomiting, fever/chills. Tolerating PO liquids without difficulty. Obesity DM / HTN Abdominal pain, pancreatitis Transaminitis - Liquid diet as tolerated - LFTs trending down, continue to monitor - Given ongoing abdominal pain, obtain MRCP for further evaluation to rule out choledocholithiasis - Pain control, IVF hydration, supportive care - Will continue to monitor patient clinical course
[2018-04-12] MEDS: Sodium Chloride 0.9% 1,000 ML IV SCH (16:15)
[2018-04-12] MEDS: Morphine 2 mg/ml ISec IVP PRN ×2 (18:20→22:19)
--- NOTE | 2018-04-12 23:56 | CARD ---
APPROVED REPORT Date of service: 04/12/2018 EKG Measurement Heart [id number] <Conclusion> Normal sinus rhythm Low voltage QRS Borderline ECG
[2018-04-13] MEDS: Sodium Chloride 0.9% 1,000 ML IV SCH ×3 (00:43→10:30)
[2018-04-13] MEDS: Morphine 2 mg/ml ISec IVP PRN ×4 (04:08→20:02)
[2018-04-13 04:13] LABS: URINE BILIRUBIN NEGATIVE (NEGATIVE); URINE BLOOD NEGATIVE (NEGATIVE); URINE GLUCOSE (UA) >=1000 mg/dL (NEGATIVE); URINE LEUKOCYTE ESTERASE NEGATIVE Leu/uL (NEGATIVE); URINE PROTEIN NEGATIVE mg/dL (<30 mg/dL)
[2018-04-13 04:17] LABS: HCG,QUALITATIVE URINE NEGATIVE (NEGATIVE); URINE APPEARANCE CLEAR (CLEAR); URINE COLOR YELLOW (YELLOW)
[2018-04-13 04:48] LABS: BARBITURATES, UR NEGATIVE (NEGATIVE); BENZODIAZEPINES, UR NEGATIVE (NEGATIVE); OPIATES, UR POSITIVE (NEGATIVE); PHENCYCLIDINE, UR NEGATIVE (NEGATIVE)
[2018-04-13 06:24] LABS: HEMOGLOBIN 9.7 g/dL (12.0-16.0); MEAN CORPUSCULAR HGB CONC 30.9 g/dl (31.0-37.0); MEAN PLATELET VOLUME 9.5 fl (7.0-11.0); RBC 3.34 10^6/uL (3.5-6.1); WHITE BLOOD COUNT 6.6 10^3/uL (4.5-11.0)
[2018-04-13 06:51] LABS: ALB/GLOB RATIO 0.9 (1.1-1.8); ALBUMIN 3.2 g/dL (3.0-4.8); ALT/SGPT 48 U/L (7-56); AST/SGOT 78 U/L (14-36); BLOOD UREA NITROGEN 6 mg/dL (7-21); CALCIUM 8.5 mg/dL (8.4-10.5); GFR NON-AFRICAN AMERICAN > 60
[2018-04-13] MEDS: Insulin Reg-LOW-Coverage SC SCH ×4 (08:41→21:12)
[2018-04-13] MEDS ORDERED: Morphine 2 mg/ml ISec IVP PRN (08:56)
--- NOTE | 2018-04-13 09:27 | CP.PCM.PN ---
<Peyman Schwartz - Last Filed: 04/13/18 11:41> Subjective - Date & Time of Evaluation Date of Evaluation: 04/13/18 Time of Evaluation: 08:20 - Subjective Subjective: PGY6 GI Fellow Progress Note Patient seen and examined bedside this morning. Sleeping comfortably on entering the room. The patient states she is having significant diffuse pains over the abdomen, back and legs. She is unable to pinpoint any particular area that is bothering her most. No nausea, vomiting. Remains constipated. Tolerated liquid diet. 12 system ROS performed and negative except where stated Objective - Vital Signs/Intake and Output Vital Signs (last 24 hours): Temp Pulse Resp BP Pulse Ox 98 F 91 H 20 142/90 100 04/13/18 08:41 04/13/18 08:41 04/13/18 08:41 04/13/18 08:41 04/13/18 08:41 Intake and Output: 04/13/18 04/13/18 06:59 18:59 Intake Total 1495 Output Total 250 Balance 1245 - Medications Medications: Current Medications Sodium Chloride (Sodium Chloride 0.9%) 1,000 mls @ 150 mls/hr IV .Q6H40M [facility] Last Admin: 04/13/18 00:43 Dose: 150 mls/hr Insulin Human Regular (Humulin R Low) 0 units SC ACHS [facility]; Protocol Last Admin: 04/13/18 08:41 Dose: 1 units Lisinopril (Zestril) 10 mg PO DAILY [facility] Last Admin: 04/12/18 10:02 Dose: 10 mg Lorazepam (Ativan) 2 mg IVP Q4 PRN; Protocol PRN Reason: Symptoms of alcohol withdrawl Last Admin: 04/12/18 15:53 Dose: 2 mg Lorazepam (Ativan) 1 mg IVP ONCE PRN; Protocol PRN Reason: Prior to MRI Morphine Sulfate (Morphine) 0.5 mg IVP Q4H PRN PRN Reason: Pain, severe (8-10) Last Admin: 04/13/18 08:50 Dose: 0.5 mg Morphine Sulfate (Morphine) 2 mg IVP ONCE PRN PRN Reason: Prior to MRI Ondansetron HCl (Zofran Inj) 4 mg IVP Q4H PRN PRN Reason: Nausea/Vomiting Last Admin: 04/11/18 22:53 Dose: 4 mg Pantoprazole Sodium (Protonix Inj) 40 mg IVP DAILY [facility] Last Admin: 04/12/18 10:01 Dose: 40 mg - Labs Labs: 04/13/18 06:00 04/13/18 06:00 PT 13.2 SECONDS (9.4-12.5) H 04/11/18 08:10 INR 1.14 04/11/18 08:10 APTT 28.1 Seconds (25.1-36.5) 04/11/18 08:10 - Constitutional Appears: Non-toxic, No Acute Distress - Eye Exam Eye Exam: EOMI, PERRL - ENT Exam ENT Exam: Mucous Membranes Moist - Respiratory Exam Respiratory Exam: Clear to Ausculation Bilateral. absent: Rales, Rhonchi, Wheezes - Cardiovascular Exam Cardiovascular Exam: RRR, +S1, +S2 - GI/Abdominal Exam GI & Abdominal Exam: Guarding, Soft, Tenderness (diffusely), Normal Bowel Sounds. absent: Distended, Firm, Rigid, Organomegaly - Extremities Exam Extremities Exam: Normal Inspection. absent: Pedal Edema - Neurological Exam Neurological Exam: Alert, Awake, Oriented x3 - Psychiatric Exam Psychiatric exam: Anxious - Skin Skin Exam: Dry, Warm Assessment and Plan - Assessment and Plan (Free Text) Assessment: Patient is a 42yo female with PMHx significant for obseity, diabetes and hypertension who presented with abdominal pain -Acute alcohol-induced pancreatitis -Elevated LFTs -Obesity -DM -HTN Plan: -Given persistence of symptoms and abnormal LFTs, recommend cross-sectional imaging with MRI abdomen and MRCP w/o contrast -Patient initially refused MRI/MRCP due to anxiety/claustrophobia but understands she will be given anxiolytic prior to exam and will try to tolerate MRI, now agreeable -Plan per results of above -LFTs in mixed pattern which can occur in EtOH use, but must R/O choledocolithiasis -Viral hepatitis panel negative -U/S without evidence of gallstones, CBD obstruction -Analgesia and antiemetic therapy per primary service -Maintain liquid diet -IVF until patient tolerating full PO <Sg Bae - Last Filed: 04/13/18 11:55> Objective - Vital Signs/Intake and Output Vital Signs (last 24 hours): Temp Pulse Resp BP Pulse Ox 98 F 91 H 20 142/90 100 04/13/18 08:41 04/13/18 09:47 04/13/18 08:41 04/13/18 09:47 04/13/18 08:41 Intake and Output: 04/13/18 04/13/18 06:59 18:59 Intake Total 1495 Output Total 250 Balance 1245 - Medications Medications: Current Medications Sodium Chloride (Sodium Chloride 0.9%) 1,000 mls @ 100 mls/hr IV .Q10H [facility] Insulin Human Regular (Humulin R Low) 0 units SC ACHS [facility]; Protocol Last Admin: 04/13/18 08:41 Dose: 1 units Lisinopril (Zestril) 10 mg PO DAILY [facility] Last Admin: 04/13/18 09:47 Dose: 10 mg Lorazepam (Ativan) 2 mg IVP Q4 PRN; Protocol PRN Reason: Symptoms of alcohol withdrawl Last Admin: 04/12/18 15:53 Dose: 2 mg Lorazepam (Ativan) 2 mg IVP ONCE PRN; Protocol PRN Reason: Prior to MRI Morphine Sulfate (Morphine) 0.5 mg IVP Q4H PRN PRN Reason: Pain, severe (8-10) Last Admin: 04/13/18 08:50 Dose: 0.5 mg Morphine Sulfate (Morphine) 2 mg IVP ONCE PRN PRN Reason: Prior to MRI Ondansetron HCl (Zofran Inj) 4 mg IVP Q4H PRN PRN Reason: Nausea/Vomiting Last Admin: 04/11/18 22:53 Dose: 4 mg Pantoprazole Sodium (Protonix Inj) 40 mg IVP DAILY [facility] Last Admin: 04/13/18 09:47 Dose: 40 mg - Labs Labs: 04/13/18 06:00 04/13/18 06:00 PT 13.2 SECONDS (9.4-12.5) H 04/11/18 08:10 INR 1.14 04/11/18 08:10 APTT 28.1 Seconds (25.1-36.5) 04/11/18 08:10 Attending/Attestation - Attestation I have fully participated in the care of the patient.: Yes I have reviewed all pertinent clinical information, including history, physical exam and plan: Yes Notes (Text): 04/13/18 11:53 Obesity HTN Abdominal pain Transaminitis - Liquid diet as tolerated - LFTs remain stable, continue to monitor - Obtain MRCP for further evaluation, rule out choledocholithiasis - Pain control - Continue with IVF hydration, supportive care. Will continue to monitor patient clinical course.
--- NOTE | 2018-04-13 14:13 | CP.PCM.PN ---
<Rajwinder Pham - Last Filed: 04/13/18 14:04> Subjective - Date & Time of Evaluation Date of Evaluation: 04/13/18 Time of Evaluation: 09:51 - Subjective Subjective: Rajwinder Pham PGY1 Hospital Progress Note Patient seen and examined at bedside this morning. No acute events reported overnight. Admits to epigastric pain. Refused MRCP this AM. After discussion with patient, she will attempt this afternoon. Offers no new complaints today. Objective - Vital Signs/Intake and Output Vital Signs (last 24 hours): Temp Pulse Resp BP Pulse Ox 98 F 91 H 20 142/90 100 04/13/18 08:41 04/13/18 09:47 04/13/18 08:41 04/13/18 09:47 04/13/18 08:41 Intake and Output: 04/13/18 04/13/18 06:59 18:59 Intake Total 1495 Output Total 250 Balance 1245 - Medications Medications: Current Medications Sodium Chloride (Sodium Chloride 0.9%) 1,000 mls @ 100 mls/hr IV .Q10H [facility] Last Admin: 04/13/18 10:30 Dose: 100 mls/hr Insulin Human Regular (Humulin R Low) 0 units SC ACHS [facility]; Protocol Last Admin: 04/13/18 12:38 Dose: 1 units Lisinopril (Zestril) 10 mg PO DAILY [facility] Last Admin: 04/13/18 09:47 Dose: 10 mg Lorazepam (Ativan) 2 mg IVP Q4 PRN; Protocol PRN Reason: Symptoms of alcohol withdrawl Last Admin: 04/12/18 15:53 Dose: 2 mg Lorazepam (Ativan) 2 mg IVP ONCE PRN; Protocol PRN Reason: Prior to MRI Morphine Sulfate (Morphine) 0.5 mg IVP Q4H PRN PRN Reason: Pain, severe (8-10) Last Admin: 04/13/18 08:50 Dose: 0.5 mg Morphine Sulfate (Morphine) 2 mg IVP ONCE PRN PRN Reason: Prior to MRI Ondansetron HCl (Zofran Inj) 4 mg IVP Q4H PRN PRN Reason: Nausea/Vomiting Last Admin: 04/11/18 22:53 Dose: 4 mg Pantoprazole Sodium (Protonix Inj) 40 mg IVP DAILY [facility] Last Admin: 04/13/18 09:47 Dose: 40 mg - Labs Labs: 04/13/18 06:00 04/13/18 06:00 PT 13.2 SECONDS (9.4-12.5) H 04/11/18 08:10 INR 1.14 04/11/18 08:10 APTT 28.1 Seconds (25.1-36.5) 04/11/18 08:10 - Additional Findings Additional findings: - Constitutional Appears: No Acute Distress - Head Exam Head Exam: ATRAUMATIC, NORMAL INSPECTION - Eye Exam Eye Exam: EOMI Pupil Exam: PERRL - ENT Exam ENT Exam: Mucous Membranes Moist - Respiratory Exam Respiratory Exam: NORMAL BREATHING PATTERN. absent: Accessory Muscle Use, Clear to Ausculation Bilateral, Wheezes, Respiratory Distress - Cardiovascular Exam Cardiovascular Exam: REGULAR RHYTHM, +S1 - GI/Abdominal Exam GI & Abdominal Exam: Soft, Normal Bowel Sounds. absent: Firm, Guarding Additional comments: erwin, obturator, rovsing signs are negative. Epigastric tenderness - Extremities Exam Extremities Exam: absent: Calf Tenderness, Pedal Edema, Tenderness - Back Exam Back Exam: NORMAL INSPECTION. absent: CVA tenderness (L), CVA tenderness (R) - Neurological Exam Neurological Exam: Alert, Awake, CN II-XII Intact - Skin Skin Exam: Normal Color, Warm Assessment and Plan - Assessment and Plan (Free Text) Assessment: 42 year old female with past medical history of HTN, DM, iron deficiency anemia, and Nephrolithiasis presenting for pancreatitis. Plan: Pancreatitis -likely 2/2 alcohol -tolerating CLD without complaints -will advance diet after MRCP results -patient refused MRCP this AM, after discussion with patient, will re-attempt this afternoon with morphine and ativan for anxiety and back pain -morphine prn -NS 150 cc/hr -zofran prn -Abdomen US with no cholelithiasis. CBD within normal limits -lipid panel within normal limits, no TG elevation -GI consult, Dr. Bae Hyponatremia -consider 2/2 pain causing increased ADH release -Na is 131 today from 134 yesterday -will focus on pain management -monitor Hx of alcohol use -alcohol level <10 on admission -CIWA score of 0 this morning -ativan prn Transaminitis -LFT, TBili mildly elevated -MRCP pending -Hepatitis panel normal -Abdomen US normal Hx HTN - home lisinopril Hx DM -ISS, low PPX/Diet -SCDs, protonix -CLD Patient seen and case discussed with attending, Dr. Pineda <Christopher Pineda - Last Filed: 04/14/18 18:31> Objective - Vital Signs/Intake and Output Vital Signs (last 24 hours): Temp Pulse Resp BP Pulse Ox 98.3 F 82 20 135/91 H 97 04/14/18 17:18 04/14/18 17:18 04/14/18 17:18 04/14/18 17:18 04/14/18 17:18 Intake and Output: 04/14/18 04/14/18 06:59 18:59 Intake Total 300 Balance 300 - Medications Medications: Current Medications Docusate Sodium (Colace) 100 mg PO BID [facility] Last Admin: 04/14/18 18:24 Dose: 100 mg Sodium Chloride (Sodium Chloride 0.9%) 1,000 mls @ 100 mls/hr IV .Q10H [facility] Last Admin: 04/14/18 18:21 Dose: 100 mls/hr Insulin Human Regular (Humulin R Low) 0 units SC ACHS [facility]; Protocol Last Admin: 04/14/18 18:19 Dose: 3 units Lisinopril (Zestril) 10 mg PO DAILY [facility] Last Admin: 04/14/18 10:06 Dose: 10 mg Ondansetron HCl (Zofran Inj) 4 mg IVP Q4H PRN PRN Reason: Nausea/Vomiting Last Admin: 04/11/18 22:53 Dose: 4 mg Oxycodone HCl (Oxycodone Immediate Release Tab) 5 mg PO Q6H PRN PRN Reason: Pain, severe (8-10) Pantoprazole Sodium (Protonix Inj) 40 mg IVP DAILY [facility] Last Admin: 04/14/18 10:05 Dose: 40 mg - Labs Labs: 04/14/18 06:00 04/14/18 06:00 PT 13.2 SECONDS (9.4-12.5) H 04/11/18 08:10 INR 1.14 04/11/18 08:10 APTT 28.1 Seconds (25.1-36.5) 04/11/18 08:10 Attending/Attestation - Attestation I have personally seen and examined this patient.: Yes I have fully participated in the care of the patient.: Yes I have reviewed all pertinent clinical information, including history, physical exam and plan: Yes Notes (Text): 04/14/18 18:31 Medical record note made by the resident after discussion with my direction and input after the patient was personally seen and examined by me. I have reviewed the chart and agree that the record accurately reflects by personal performance of the history, physical exam, data review, and medical decision-making, in the course for the patient. I have also personally directed the plan of care
[2018-04-14] MEDS: Sodium Chloride 0.9% 1,000 ML IV SCH ×3 (02:23→18:21)
[2018-04-14] MEDS: Morphine 2 mg/ml ISec IVP PRN (05:00)
[2018-04-14] MEDS ORDERED: POLYETHYLENE GLYCOL 3350 17 GM/Dose PACKET PO ONE (05:12)
[2018-04-14 06:40] LABS: HEMOGLOBIN 9.6 g/dL (12.0-16.0); MEAN CELL VOLUME 93.9 fl (80.0-105.0); MEAN CORPUSCULAR HEMOGLOBIN 29.4 pg (25.0-35.0); MEAN CORPUSCULAR HGB CONC 31.3 g/dl (31.0-37.0); MEAN PLATELET VOLUME 9.7 fl (7.0-11.0); RBC 3.27 10^6/uL (3.5-6.1); RED CELL DISTRIBUTION WIDTH 18.1 % (11.5-14.5); WHITE BLOOD COUNT 5.8 10^3/uL (4.5-11.0)
[2018-04-14 07:12] LABS: ALB/GLOB RATIO 0.9 (1.1-1.8); ALBUMIN 3.1 g/dL (3.0-4.8); ALT/SGPT 49 U/L (7-56); AST/SGOT 77 U/L (14-36); BLOOD UREA NITROGEN 5 mg/dL (7-21); CALCIUM 9.1 mg/dL (8.4-10.5); GFR NON-AFRICAN AMERICAN > 60
[2018-04-14] MEDS ORDERED: Morphine 2 mg/ml ISec IVP PRN (07:54)
--- NOTE | 2018-04-14 08:41 | CP.PCM.PN ---
<Peyman Schwartz - Last Filed: 04/14/18 11:21> Subjective - Date & Time of Evaluation Date of Evaluation: 04/14/18 Time of Evaluation: 07:10 - Subjective Subjective: PGY6 GI Fellow Progress Note Patient seen and examined bedside this morning. The patient states that she is feeling slightly better today. Tolerated jello yesterday without pain, nausea, vomiting. Modest improvement in pain. 12 system ROS performed and negative except where stated Objective - Vital Signs/Intake and Output Vital Signs (last 24 hours): Temp Pulse Resp BP Pulse Ox 99.2 F 73 18 139/92 H 98 04/14/18 06:00 04/14/18 06:00 04/14/18 06:00 04/14/18 06:00 04/14/18 06:00 Intake and Output: 04/14/18 04/14/18 06:59 18:59 Intake Total 300 Balance 300 - Medications Medications: Current Medications Docusate Sodium (Colace) 100 mg PO BID [facility] Last Admin: 04/14/18 05:20 Dose: 100 mg Sodium Chloride (Sodium Chloride 0.9%) 1,000 mls @ 100 mls/hr IV .Q10H [facility] Last Admin: 04/14/18 06:50 Dose: 100 mls/hr Insulin Human Regular (Humulin R Low) 0 units SC [facility]; Protocol Last Admin: 04/13/18 21:12 Dose: Not Given Lisinopril (Zestril) 10 mg PO DAILY [facility] Last Admin: 04/13/18 09:47 Dose: 10 mg Morphine Sulfate (Morphine) 0.5 mg IVP Q8H PRN PRN Reason: Pain, severe (8-10) Ondansetron HCl (Zofran Inj) 4 mg IVP Q4H PRN PRN Reason: Nausea/Vomiting Last Admin: 04/11/18 22:53 Dose: 4 mg Pantoprazole Sodium (Protonix Inj) 40 mg IVP DAILY [facility] Last Admin: 04/13/18 09:47 Dose: 40 mg - Labs Labs: 04/14/18 06:00 04/14/18 06:00 PT 13.2 SECONDS (9.4-12.5) H 04/11/18 08:10 INR 1.14 04/11/18 08:10 APTT 28.1 Seconds (25.1-36.5) 04/11/18 08:10 - Constitutional Appears: Non-toxic, No Acute Distress - Eye Exam Eye Exam: EOMI, PERRL - ENT Exam ENT Exam: Mucous Membranes Moist - Respiratory Exam Respiratory Exam: Rales. absent: Clear to Ausculation Bilateral, Rhonchi, Wh eezes - Cardiovascular Exam Cardiovascular Exam: RRR, +S1, +S2 - GI/Abdominal Exam GI & Abdominal Exam: Soft, Tenderness (upper abdomen), Normal Bowel Sounds. absent: Distended, Firm, Guarding, Rigid, Organomegaly - Extremities Exam Extremities Exam: Normal Inspection. absent: Pedal Edema - Neurological Exam Neurological Exam: Alert, Awake, Oriented x3 - Psychiatric Exam Psychiatric exam: Anxious - Skin Skin Exam: Dry, Warm Assessment and Plan - Assessment and Plan (Free Text) Assessment: Patient is a 42yo female with PMHx significant for obseity, diabetes and hypertension who presented with abdominal pain -Acute alcohol-induced pancreatitis -Elevated LFTs, mixed pattern -Obesity -DM -HTN Plan: -MRI/MRCP performed given persistence of pain and elevated LFTs; unremarkable -Suspect elevations 2/2 acute alcoholic pancreatitis -Analgesia and antiemetic therapy per primary service -Advance to low fat/low fiber diet -IVF until patient tolerating full PO <Sg Bae - Last Filed: 04/14/18 11:30> Objective - Vital Signs/Intake and Output Vital Signs (last 24 hours): Temp Pulse Resp BP Pulse Ox 99.2 F 73 18 130/92 H 98 04/14/18 06:00 04/14/18 10:06 04/14/18 06:00 04/14/18 10:06 04/14/18 06:00 Intake and Output: 04/14/18 04/14/18 06:59 18:59 Intake Total 300 Balance 300 - Medications Medications: Current Medications Docusate Sodium (Colace) 100 mg PO BID [facility] Last Admin: 04/14/18 10:05 Dose: 100 mg Sodium Chloride (Sodium Chloride 0.9%) 1,000 mls @ 100 mls/hr IV .Q10H [facility] Last Admin: 04/14/18 06:50 Dose: 100 mls/hr Insulin Human Regular (Humulin R Low) 0 units SC ACHS [facility]; Protocol Last Admin: 04/14/18 10:00 Dose: 2 units Lisinopril (Zestril) 10 mg PO DAILY [facility] Last Admin: 04/14/18 10:06 Dose: 10 mg Morphine Sulfate (Morphine) 0.5 mg IVP Q8H PRN PRN Reason: Pain, severe (8-10) Ondansetron HCl (Zofran Inj) 4 mg IVP Q4H PRN PRN Reason: Nausea/Vomiting Last Admin: 04/11/18 22:53 Dose: 4 mg Pantoprazole Sodium (Protonix Inj) 40 mg IVP DAILY [facility] Last Admin: 04/14/18 10:05 Dose: 40 mg - Labs Labs: 04/14/18 06:00 04/14/18 06:00 PT 13.2 SECONDS (9.4-12.5) H 04/11/18 08:10 INR 1.14 04/11/18 08:10 APTT 28.1 Seconds (25.1-36.5) 04/11/18 08:10 Attending/Attestation - Attestation I have personally seen and examined this patient.: Yes I have fully participated in the care of the patient.: Yes I have reviewed all pertinent clinical information, including history, physical exam and plan: Yes Notes (Text): 04/14/18 11:28 I have seen and examined patient with GI fellow. No acute events overnight, her abdominal pain is improved and she is able to tolerate PO liquids without difficulty. She denies nausea, vomiting, fever/chills. Obesity DM / HTN Abdominal pain, pancreatitis (etiology unclear though suspect ETOH related) Transaminitis - Advance diet to low fat as tolerated - LFTs stable, continue to monitor - MRCP imaging reviewed with radiology, no presence of CBD dilation or choledocholithiasis - If patient tolerating PO without difficulty, from GI standpoint ok to discharge patient home with subsequent outpatient follow up
[2018-04-14] MEDS: Insulin Reg-LOW-Coverage SC SCH ×4 (10:00→22:40)
--- NOTE | 2018-04-14 11:09 | MRI ---
Date of service: 04/14/2018 PROCEDURE: Magnetic Resonance Cholangiopancreatography HISTORY: Abdominal pain, abnormal LFTs COMPARISON: None available. TECHNIQUE: Multiplanar, multisequence MR images of the abdomen were obtained, including heavily T2 weighted MRCP images of the biliary system. Rotating maximum intensity projection images of the biliary system were generated. FINDINGS: MRCP: The common bile duct is of a normal caliber. No evidence of choledocholithiasis. No intrahepatic biliary ductal dilatation. LIVER: Fatty infiltration of the liver GALLBLADDER: Unremarkable. SPLEEN: Unremarkable. PANCREAS: Unremarkable. ADRENALS: Unremarkable. KIDNEYS: Unremarkable. AORTA: No aneurysm. ASCITES: Mild ascites OTHER FINDINGS: None. IMPRESSION: No evidence of common duct stone or ductal dilatation.
--- NOTE | 2018-04-14 11:47 | CP.PCM.PN ---
<Rajwinder Pham - Last Filed: 04/14/18 11:44> Subjective - Date & Time of Evaluation Date of Evaluation: 04/14/18 Time of Evaluation: 10:44 - Subjective Subjective: Rajwinder Pham PGY1 Hospital Progress Note Patient seen and examined at bedside this morning. No acute events reported overnight. Admits to improved epigastric pain. Tolerating diet without complaints. MRCP this morning. Offers no new complaints today. Objective - Vital Signs/Intake and Output Vital Signs (last 24 hours): Temp Pulse Resp BP Pulse Ox 99.2 F 73 18 130/92 H 98 04/14/18 06:00 04/14/18 10:06 04/14/18 06:00 04/14/18 10:06 04/14/18 06:00 Intake and Output: 04/14/18 04/14/18 06:59 18:59 Intake Total 300 Balance 300 - Medications Medications: Current Medications Docusate Sodium (Colace) 100 mg PO BID [facility] Last Admin: 04/14/18 10:05 Dose: 100 mg Sodium Chloride (Sodium Chloride 0.9%) 1,000 mls @ 100 mls/hr IV .Q10H [facility] Last Admin: 04/14/18 06:50 Dose: 100 mls/hr Insulin Human Regular (Humulin R Low) 0 units SC ACHS [facility]; Protocol Last Admin: 04/14/18 10:00 Dose: 2 units Lisinopril (Zestril) 10 mg PO DAILY [facility] Last Admin: 04/14/18 10:06 Dose: 10 mg Morphine Sulfate (Morphine) 0.5 mg IVP Q8H PRN PRN Reason: Pain, severe (8-10) Ondansetron HCl (Zofran Inj) 4 mg IVP Q4H PRN PRN Reason: Nausea/Vomiting Last Admin: 04/11/18 22:53 Dose: 4 mg Pantoprazole Sodium (Protonix Inj) 40 mg IVP DAILY [facility] Last Admin: 04/14/18 10:05 Dose: 40 mg - Labs Labs: 04/14/18 06:00 04/14/18 06:00 PT 13.2 SECONDS (9.4-12.5) H 04/11/18 08:10 INR 1.14 04/11/18 08:10 APTT 28.1 Seconds (25.1-36.5) 04/11/18 08:10 - Additional Findings Additional findings: - Constitutional Appears: No Acute Distress - Head Exam Head Exam: ATRAUMATIC, NORMAL INSPECTION - Eye Exam Eye Exam: EOMI Pupil Exam: PERRL - ENT Exam ENT Exam: Mucous Membranes Moist - Respiratory Exam Respiratory Exam: NORMAL BREATHING PATTERN. absent: Accessory Muscle Use, Clear to Ausculation Bilateral, Wheezes, Respiratory Distress - Cardiovascular Exam Cardiovascular Exam: REGULAR RHYTHM, +S1 - GI/Abdominal Exam GI & Abdominal Exam: Soft, Normal Bowel Sounds. absent: Firm, Guarding Additional comments: erwin, obturator, rovsing signs are negative. Mild epigastric tenderness to deep palpation - Extremities Exam Extremities Exam: absent: Calf Tenderness, Pedal Edema, Tenderness - Back Exam Back Exam: NORMAL INSPECTION. absent: CVA tenderness (L), CVA tenderness (R) - Neurological Exam Neurological Exam: Alert, Awake, CN II-XII Intact - Skin Skin Exam: Normal Color, Warm Assessment and Plan - Assessment and Plan (Free Text) Assessment: 42 year old female with past medical history of HTN, DM, iron deficiency anemia, and Nephrolithiasis presenting for pancreatitis. Plan: Pancreatitis -likely 2/2 alcohol -tolerating CLD without complaints, will advance today -will discharge if tolerating diet without difficulty -MRCP was unremarkable -morphine prn -NS 100 cc/hr -zofran prn -Abdomen US with no cholelithiasis. CBD within normal limits -lipid panel within normal limits, no TG elevation -GI consult, Dr. Bae Hyponatremia - resolved -Na is 133 from 131 yesterday -NS 100 -monitor Hx of alcohol use -alcohol level <10 on admission -CIWA score of 0 -ativan prn Transaminitis -LFT, TBili mildly elevated -Hepatitis panel normal -Abdomen US normal Hx HTN -home lisinopril Hx DM -ISS, low PPX/Diet -SCDs, protonix -CLD Patient seen and case discussed with attending, Dr. Pineda <Chritsopher Pineda - Last Filed: 04/14/18 18:31> Objective - Vital Signs/Intake and Output Vital Signs (last 24 hours): Temp Pulse Resp BP Pulse Ox 98.3 F 82 20 135/91 H 97 04/14/18 17:18 04/14/18 17:18 04/14/18 17:18 04/14/18 17:18 04/14/18 17:18 Intake and Output: 04/14/18 04/14/18 06:59 18:59 Intake Total 300 Balance 300 - Medications Medications: Current Medications Docusate Sodium (Colace) 100 mg PO BID [facility] Last Admin: 04/14/18 18:24 Dose: 100 mg Sodium Chloride (Sodium Chloride 0.9%) 1,000 mls @ 100 mls/hr IV .Q10H [facility] Last Admin: 04/14/18 18:21 Dose: 100 mls/hr Insulin Human Regular (Humulin R Low) 0 units SC ACHS [facility]; Protocol Last Admin: 04/14/18 18:19 Dose: 3 units Lisinopril (Zestril) 10 mg PO DAILY [facility] Last Admin: 04/14/18 10:06 Dose: 10 mg Ondansetron HCl (Zofran Inj) 4 mg IVP Q4H PRN PRN Reason: Nausea/Vomiting Last Admin: 04/11/18 22:53 Dose: 4 mg Oxycodone HCl (Oxycodone Immediate Release Tab) 5 mg PO Q6H PRN PRN Reason: Pain, severe (8-10) Pantoprazole Sodium (Protonix Inj) 40 mg IVP DAILY [facility] Last Admin: 04/14/18 10:05 Dose: 40 mg - Labs Labs: 04/14/18 06:00 04/14/18 06:00 PT 13.2 SECONDS (9.4-12.5) H 04/11/18 08:10 INR 1.14 04/11/18 08:10 APTT 28.1 Seconds (25.1-36.5) 04/11/18 08:10 Attending/Attestation - Attestation I have personally seen and examined this patient.: Yes I have fully participated in the care of the patient.: Yes I have reviewed all pertinent clinical information, including history, physical exam and plan: Yes Notes (Text): 04/14/18 18:29 Medical record note made by the resident after discussion with my direction and input after the patient was personally seen and examined by me. I have reviewed the chart and agree that the record accurately reflects by personal performance of the history, physical exam, data review, and medical decision-making, in the course for the patient. I have also personally directed the plan of care. 42 year old female with past medical history of HTN, DM, iron deficiency anemia, and Nephrolithiasis was admitted with alcoholic pancreatitis, Patient has epigastric tenderness, tolerating clear liquid diet. LFT are stable. GI evaluation is appreciated. MRCP is negative for cholidicolithiasis Patient diet is advanced today, we will monitor . If patient will be able to tolerate food, she can be discharged home in 24 hour. Management plan was discussed in detail with patient. Education was provided
[2018-04-14 17:19] VITALS: RESP 20
[2018-04-14] MEDS: oxyCODONE 5 mg Immediate Release Tab PO PRN (18:32)
[2018-04-14] MEDS: guaiFENesin 100 mg/5 ml Syrup UD PO PRN (23:35)
[2018-04-15] MEDS: Sodium Chloride 0.9% 1,000 ML IV SCH (03:00)
[2018-04-15] MEDS: oxyCODONE 5 mg Immediate Release Tab PO PRN ×2 (05:03→11:33)
[2018-04-15] MEDS: guaiFENesin 100 mg/5 ml Syrup UD PO PRN (05:03)
[2018-04-15 06:40] LABS: HEMOGLOBIN 9.1 g/dL (12.0-16.0); MEAN CELL VOLUME 92.6 fl (80.0-105.0); MEAN CORPUSCULAR HEMOGLOBIN 28.2 pg (25.0-35.0); MEAN CORPUSCULAR HGB CONC 30.4 g/dl (31.0-37.0); MEAN PLATELET VOLUME 9.8 fl (7.0-11.0); RBC 3.23 10^6/uL (3.5-6.1); RED CELL DISTRIBUTION WIDTH 17.8 % (11.5-14.5); WHITE BLOOD COUNT 5.7 10^3/uL (4.5-11.0)
[2018-04-15 06:44] LABS: ALB/GLOB RATIO 0.9 (1.1-1.8); ALBUMIN 3.2 g/dL (3.0-4.8); ALT/SGPT 44 U/L (7-56); AST/SGOT 75 U/L (14-36); BLOOD UREA NITROGEN 5 mg/dL (7-21); CALCIUM 8.9 mg/dL (8.4-10.5); GFR NON-AFRICAN AMERICAN > 60
[2018-04-15 08:14] VITALS: BP 149/87; PULSE 81; TEMP 97.9; O2SAT 96
[2018-04-15] MEDS: Insulin Reg-LOW-Coverage SC SCH ×2 (08:22→11:32)
--- NOTE | 2018-04-15 11:42 | CP.PCM.DIS ---
<Tyesha Parikh - Last Filed: 04/15/18 11:46> Provider - Provider Date of Admission: 04/11/18 09:57 Attending physician: Brent Horan MD Primary care physician: Boom Galeas MD Consults: 04/11/18 10:57 Gastroenterology Consult Routine Comment: Consulting Provider: Sg Bae Consulting Physician: Sg Bae Reason for Consult: Pancreatitis 04/11/18 11:12 Diabetic Education Referral Routine Comment: Physician Instructions: Reason For Exam: Elevated Blood Sugar Time Spent in preparation of Discharge (in minutes): 35 Hospital Course - Lab Results Lab Results: Most Recent Lab Values WBC 5.7 10^3/uL (4.5-11.0) 04/15/18 05:30 RBC 3.23 10^6/uL (3.5-6.1) L 04/15/18 05:30 Hgb 9.1 g/dL (12.0-16.0) L 04/15/18 05:30 Hct 29.9 % (36.0-48.0) L 04/15/18 05:30 MCV 92.6 fl (80.0-105.0) 04/15/18 05:30 MCH 28.2 pg (25.0-35.0) 04/15/18 05:30 MCHC 30.4 g/dl (31.0-37.0) L 04/15/18 05:30 RDW 17.8 % (11.5-14.5) H 04/15/18 05:30 Plt Count 137 10^3/uL (120.0-450.0) 04/15/18 05:30 MPV 9.8 fl (7.0-11.0) 04/15/18 05:30 Gran % 67.0 % (50.0-68.0) 04/11/18 08:10 Lymph % (Auto) 19.5 % (22.0-35.0) L 04/11/18 08:10 [place] % (Auto) 12.2 % (1.0-6.0) H 04/11/18 08:10 Eos % (Auto) 1.2 % (1.5-5.0) L 04/11/18 08:10 Baso % (Auto) 0.1 % (0.0-3.0) 04/11/18 08:10 Gran # 4.50 (1.4-6.5) 04/11/18 08:10 Lymph # (Auto) 1.3 (1.2-3.4) 04/11/18 08:10 [place] # (Auto) 0.8 (0.1-0.6) H 04/11/18 08:10 Eos # (Auto) 0.1 (0.0-0.7) 04/11/18 08:10 Baso # (Auto) 0.01 K/mm3 (0.0-2.0) 04/11/18 08:10 PT 13.2 SECONDS (9.4-12.5) H 04/11/18 08:10 INR 1.14 04/11/18 08:10 APTT 28.1 Seconds (25.1-36.5) 04/11/18 08:10 Sodium 133 mmol/L (132-148) 04/15/18 05:30 Potassium 3.6 mmol/L (3.6-5.0) 04/15/18 05:30 Chloride 102 mmol/L (98-107) 04/15/18 05:30 Carbon Dioxide 25 mmol/L (21-33) 04/15/18 05:30 Anion Gap 10 (10-20) 04/15/18 05:30 BUN 5 mg/dL (7-21) L 04/15/18 05:30 Creatinine 0.6 mg/dl (0.7-1.2) L 04/15/18 05:30 Est GFR ( Amer) > 60 04/15/18 05:30 Est GFR (Non-Af Amer) > 60 04/15/18 05:30 POC Glucose (mg/dL) 228 mg/dL (65-110) H 04/15/18 07:45 Random Glucose 240 mg/dL (70-110) H 04/15/18 05:30 Calcium 8.9 mg/dL (8.4-10.5) 04/15/18 05:30 Magnesium 1.8 mg/dL (1.7-2.2) 04/11/18 08:10 Total Bilirubin 2.1 mg/dL (0.2-1.3) H 04/15/18 05:30 Direct Bilirubin 1.5 mg/dL (0.0-0.4) H 04/11/18 08:44 AST 75 U/L (14-36) H 04/15/18 05:30 ALT 44 U/L (7-56) 04/15/18 05:30 Alkaline Phosphatase 209 U/L (38-126) H 04/15/18 05:30 Troponin I < 0.01 ng/mL 04/12/18 02:05 Total Protein 6.7 g/dL (5.8-8.3) 04/15/18 05:30 Albumin 3.2 g/dL (3.0-4.8) 04/15/18 05:30 Globulin 3.6 gm/dL 04/15/18 05:30 Albumin/Globulin Ratio 0.9 (1.1-1.8) L 04/15/18 05:30 Triglycerides 120 mg/dL (35-160) 04/11/18 10:00 Cholesterol 236 mg/dL (130-200) H 04/11/18 10:00 LDL Cholesterol Direct 129 mg/dL (0-129) 04/11/18 10:00 HDL Cholesterol 85 mg/dL (29-60) H 04/11/18 10:00 Lipase 1090 U/L (23-300) H 04/11/18 08:10 Beta HCG, Quant < 2.39 mIU/mL (0-6.15) 04/11/18 08:10 Urine Color Yellow (YELLOW) 04/13/18 04:00 Urine Appearance Clear (CLEAR) 04/13/18 04:00 Urine pH 7.0 (4.7-8.0) 04/13/18 04:00 Ur Specific [place] 1.015 (1.005-1.035) 04/13/18 04:00 Urine Protein Negative mg/dL (<30 mg/dL) 04/13/18 04:00 Urine Glucose (UA) >=1000 mg/dL (NEGATIVE) 04/13/18 04:00 Urine Ketones 15 mg/dL (NEGATIVE) H 04/13/18 04:00 Urine Blood Negative (NEGATIVE) 04/13/18 04:00 Urine Nitrate Negative (NEGATIVE) 04/13/18 04:00 Urine Bilirubin Negative (NEGATIVE) 04/13/18 04:00 Urine Urobilinogen 1.0 E.U./dL (<1 E.U./dL) H 04/13/18 04:00 Ur Leukocyte Esterase Negative Jennifer/uL (NEGATIVE) 04/13/18 04:00 Urine Osmolality 401 mosm/kg (300-1000) 04/13/18 14:49 Ur Random Sodium 131 meq/L 04/13/18 18:46 Ur Random Potassium 17.7 meq/L 04/13/18 18:46 Urine HCG, Qual Negative (NEGATIVE) 04/13/18 04:00 Urine Opiates Screen Positive (NEGATIVE) H 04/13/18 04:00 Urine Methadone Screen Negative (NEGATIVE) 04/13/18 04:00 Ur Barbiturates Screen Negative (NEGATIVE) 04/13/18 04:00 Ur Phencyclidine Scrn Negative (NEGATIVE) 04/13/18 04:00 Ur Amphetamines Screen Negative (NEGATIVE) 04/13/18 04:00 U Benzodiazepines Scrn Negative (NEGATIVE) 04/13/18 04:00 U Oth Cocaine Metabols Negative (NEGATIVE) 04/13/18 04:00 U Cannabinoids Screen Negative (NEGATIVE) 04/13/18 04:00 Alcohol, Quantitative < 10 mg/dL (0-10) 04/11/18 10:00 Hepatitis A IgM Ab Negative (NEGATIVE) 04/11/18 10:00 Hep Bs Antigen Negative (NEGATIVE) 04/11/18 10:00 Hep B Core IgM Ab Negative (NEGATIVE) 04/11/18 10:00 Hepatitis C Antibody Negative (NEGATIVE) 04/11/18 10:00 - Hospital Course Hospital Course: 42 year old female with past medical history of HTN, DM, iron deficiency anemia, and nephrolithiasis presents to the hospital for a 2 history of worsening abdominal pain. Patient states she was standing when she first noted her abdominal pain. Patient states her pain became worse and was not able to sleep overnight. Patient tried Motrin for pain but it did not help. Pain is rated at 10/10 and characterized as sharp. Patient states pain is diffusely throughout her abdomen and her back. Patient admits to having a similar presentation in the past which she was hospitalized for several days. Patient admits to drinking several beers 3 days ago. Patient admits to nausea, vomiting, diarrhea, and dysuria at this time. Denies chest pain, shortness of breath, fever, chills. The patient was found to have pancreatitis with a concurrent transaminitis and elevated lipase. She was started on IVF, analgesics, kept NPO, and GI was consulted. The patient's hospital course was protracted secondary to refusing to undergo MRCP given she is heavy set and could not lie supine. Eventually, with pre-medication she underwent an MRCP that showed no common bile duct dilatation or evidence of a stone/filling defect. Her diet was advance as tolerated. She was discharged with recommendations to abstain from alcohol and drugs, to advance her diet as tolerated. She tolerated her lunch without difficulty on the day of discharge. - Date & Time of H&P Date of H&P: 04/15/18 Time of H&P: 11:48 Discharge Exam - Head Exam Head Exam: ATRAUMATIC, NORMAL INSPECTION - Eye Exam Eye Exam: EOMI, Normal appearance - ENT Exam ENT Exam: Mucous Membranes Moist, Normal Oropharynx - Neck Exam Neck exam: Normal Inspection - Respiratory Exam Respiratory Exam: Clear to PA & Lateral, NORMAL BREATHING PATTERN. absent: Accessory Muscle Use - Cardiovascular Exam Cardiovascular Exam: RRR, +S1, +S2 - GI/Abdominal Exam GI & Abdominal Exam: Normal Bowel Sounds, Soft. absent: Guarding, Rebound, T enderness - Extremities Exam Extremities exam: normal inspection - Neurological Exam Neurological exam: Alert, CN II-XII Intact, Oriented x3 - Psychiatric Exam Psychiatric exam: Normal Affect, Normal Mood - Skin Skin Exam: Dry, Intact, Normal Color, Warm Discharge Plan - Discharge Medications Prescriptions: Ondansetron ODT [Zofran ODT] 4 mg PO Q4H #18 odt oxyCODONE [oxyCODONE Immediate Release Tab] 5 mg PO Q6 PRN #8 tab PRN Reason: Pain, Severe (8-10) Pantoprazole Sodium [Protonix] 40 mg PO DAILY #30 ect - Follow Up Plan Condition: STABLE Disposition: HOME/ ROUTINE Instructions: Pancreatitis (DC) Additional Instructions: 1) Patient to follow up with PMD within one week of discharge. 2) Patient to advance diet as tolerated. 3) Patient to abstain from alcohol and any other drugs. Referrals: Boom Galeas MD [Primary Care Provider] - <Brent Horan - Last Filed: 04/15/18 14:28> Provider - Provider Date of Admission: 04/11/18 09:57 Attending physician: Brent Horan MD Primary care physician: Boom Galeas MD Consults: 04/11/18 10:57 Gastroenterology Consult Routine Comment: Consulting Provider: Sg Bae Consulting Physician: Sg Bae Reason for Consult: Pancreatitis 04/11/18 11:12 Diabetic Education Referral Routine Comment: Physician Instructions: Reason For Exam: Elevated Blood Sugar Hospital Course - Lab Results Lab Results: Most Recent Lab Values WBC 5.7 10^3/uL (4.5-11.0) 04/15/18 05:30 RBC 3.23 10^6/uL (3.5-6.1) L 04/15/18 05:30 Hgb 9.1 g/dL (12.0-16.0) L 04/15/18 05:30 Hct 29.9 % (36.0-48.0) L 04/15/18 05:30 MCV 92.6 fl (80.0-105.0) 04/15/18 05:30 MCH 28.2 pg (25.0-35.0) 04/15/18 05:30 MCHC 30.4 g/dl (31.0-37.0) L 04/15/18 05:30 RDW 17.8 % (11.5-14.5) H 04/15/18 05:30 Plt Count 137 10^3/uL (120.0-450.0) 04/15/18 05:30 MPV 9.8 fl (7.0-11.0) 04/15/18 05:30 Gran % 67.0 % (50.0-68.0) 04/11/18 08:10 Lymph % (Auto) 19.5 % (22.0-35.0) L 04/11/18 08:10 [place] % (Auto) 12.2 % (1.0-6.0) H 04/11/18 08:10 Eos % (Auto) 1.2 % (1.5-5.0) L 04/11/18 08:10 Baso % (Auto) 0.1 % (0.0-3.0) 04/11/18 08:10 Gran # 4.50 (1.4-6.5) 04/11/18 08:10 Lymph # (Auto) 1.3 (1.2-3.4) 04/11/18 08:10 [place] # (Auto) 0.8 (0.1-0.6) H 04/11/18 08:10 Eos # (Auto) 0.1 (0.0-0.7) 04/11/18 08:10 Baso # (Auto) 0.01 K/mm3 (0.0-2.0) 04/11/18 08:10 PT 13.2 SECONDS (9.4-12.5) H 04/11/18 08:10 INR 1.14 04/11/18 08:10 APTT 28.1 Seconds (25.1-36.5) 04/11/18 08:10 Sodium 133 mmol/L (132-148) 04/15/18 05:30 Potassium 3.6 mmol/L (3.6-5.0) 04/15/18 05:30 Chloride 102 mmol/L (98-107) 04/15/18 05:30 Carbon Dioxide 25 mmol/L (21-33) 04/15/18 05:30 Anion Gap 10 (10-20) 04/15/18 05:30 BUN 5 mg/dL (7-21) L 04/15/18 05:30 Creatinine 0.6 mg/dl (0.7-1.2) L 04/15/18 05:30 Est GFR ( Amer) > 60 04/15/18 05:30 Est GFR (Non-Af Amer) > 60 04/15/18 05:30 POC Glucose (mg/dL) 274 mg/dL (65-110) H 04/15/18 11:13 Random Glucose 240 mg/dL (70-110) H 04/15/18 05:30 Calcium 8.9 mg/dL (8.4-10.5) 04/15/18 05:30 Magnesium 1.8 mg/dL (1.7-2.2) 04/11/18 08:10 Total Bilirubin 2.1 mg/dL (0.2-1.3) H 04/15/18 05:30 Direct Bilirubin 1.5 mg/dL (0.0-0.4) H 04/11/18 08:44 AST 75 U/L (14-36) H 04/15/18 05:30 ALT 44 U/L (7-56) 04/15/18 05:30 Alkaline Phosphatase 209 U/L (38-126) H 04/15/18 05:30 Troponin I < 0.01 ng/mL 04/12/18 02:05 Total Protein 6.7 g/dL (5.8-8.3) 04/15/18 05:30 Albumin 3.2 g/dL (3.0-4.8) 04/15/18 05:30 Globulin 3.6 gm/dL 04/15/18 05:30 Albumin/Globulin Ratio 0.9 (1.1-1.8) L 04/15/18 05:30 Triglycerides 120 mg/dL (35-160) 04/11/18 10:00 Cholesterol 236 mg/dL (130-200) H 04/11/18 10:00 LDL Cholesterol Direct 129 mg/dL (0-129) 04/11/18 10:00 HDL Cholesterol 85 mg/dL (29-60) H 04/11/18 10:00 Lipase 1090 U/L (23-300) H 04/11/18 08:10 Beta HCG, Quant < 2.39 mIU/mL (0-6.15) 04/11/18 08:10 Urine Color Yellow (YELLOW) 04/13/18 04:00 Urine Appearance Clear (CLEAR) 04/13/18 04:00 Urine pH 7.0 (4.7-8.0) 04/13/18 04:00 Ur Specific [place] 1.015 (1.005-1.035) 04/13/18 04:00 Urine Protein Negative mg/dL (<30 mg/dL) 04/13/18 04:00 Urine Glucose (UA) >=1000 mg/dL (NEGATIVE) 04/13/18 04:00 Urine Ketones 15 mg/dL (NEGATIVE) H 04/13/18 04:00 Urine Blood Negative (NEGATIVE) 04/13/18 04:00 Urine Nitrate Negative (NEGATIVE) 04/13/18 04:00 Urine Bilirubin Negative (NEGATIVE) 04/13/18 04:00 Urine Urobilinogen 1.0 E.U./dL (<1 E.U./dL) H 04/13/18 04:00 Ur Leukocyte Esterase Negative Jennifer/uL (NEGATIVE) 04/13/18 04:00 Urine Osmolality 401 mosm/kg (300-1000) 04/13/18 14:49 Ur Random Sodium 131 meq/L 04/13/18 18:46 Ur Random Potassium 17.7 meq/L 04/13/18 18:46 Urine HCG, Qual Negative (NEGATIVE) 04/13/18 04:00 Urine Opiates Screen Positive (NEGATIVE) H 04/13/18 04:00 Urine Methadone Screen Negative (NEGATIVE) 04/13/18 04:00 Ur Barbiturates Screen Negative (NEGATIVE) 04/13/18 04:00 Ur Phencyclidine Scrn Negative (NEGATIVE) 04/13/18 04:00 Ur Amphetamines Screen Negative (NEGATIVE) 04/13/18 04:00 U Benzodiazepines Scrn Negative (NEGATIVE) 04/13/18 04:00 U Oth Cocaine Metabols Negative (NEGATIVE) 04/13/18 04:00 U Cannabinoids Screen Negative (NEGATIVE) 04/13/18 04:00 Alcohol, Quantitative < 10 mg/dL (0-10) 04/11/18 10:00 Hepatitis A IgM Ab Negative (NEGATIVE) 04/11/18 10:00 Hep Bs Antigen Negative (NEGATIVE) 04/11/18 10:00 Hep B Core IgM Ab Negative (NEGATIVE) 04/11/18 10:00 Hepatitis C Antibody Negative (NEGATIVE) 04/11/18 10:00 Attending/Attestation - Attestation I have personally seen and examined this patient.: Yes I have fully participated in the care of the patient.: Yes I have reviewed all pertinent clinical information, including history, physical exam and plan: Yes Notes (Text): 04/15/18 14:24 42 year old female with past medical history of hypertension, diabetes, pa ncreatitis and history of nephrolithiasis who presented with complaint of epigastric/back pain. She was found to have acute alcohol pancreatitis. She was initially NPO with IV fluids and analgesics. As symptoms improved her diet was advanced which she tolerated. LFTs were mildly elevated but stable. Hepatitis panel was negative. MRCP was negative for choledocholithiasis. She was being followed by GI. Overall her symptoms improved. She is discharged home to follow up with pmd. Counselled on alcohol abstinence. Brent Horan MD Hospitalist.
--- NOTE | 2018-04-15 12:45 | CP.PCM.PN ---
<EdwinaChristian dengerin - Last Filed: 04/15/18 12:42> Subjective - Date & Time of Evaluation Date of Evaluation: 04/15/18 Time of Evaluation: 11:40 - Subjective Subjective: PGY-4 GI Fellow Prog Note Pt lying in bed when seen this AM. States abd pain continues to slowly improve. States she is eating some and tolerating what little she is trying to eat. Reports somewhat loose BM yesterday x1. 5 point ROS negative other than stated above Objective - Vital Signs/Intake and Output Vital Signs (last 24 hours): Temp Pulse Resp BP Pulse Ox 97.9 F 81 20 149/87 96 04/15/18 08:13 04/15/18 09:20 04/15/18 08:13 04/15/18 09:20 04/15/18 08:13 - Medications Medications: Current Medications Docusate Sodium (Colace) 100 mg PO BID [facility] Last Admin: 04/15/18 09:20 Dose: 100 mg Guaifenesin (Robitussin) 100 mg PO Q4H PRN PRN Reason: Cough Last Admin: 04/15/18 05:03 Dose: 100 mg Sodium Chloride (Sodium Chloride 0.9%) 1,000 mls @ 100 mls/hr IV .Q10H [facility] Last Admin: 04/15/18 03:00 Dose: 100 mls/hr Insulin Human Regular (Humulin R Low) 0 units SC [facility]; Protocol Last Admin: 04/15/18 11:32 Dose: 3 units Lisinopril (Zestril) 10 mg PO DAILY [facility] Last Admin: 04/15/18 09:20 Dose: 10 mg Ondansetron HCl (Zofran Inj) 4 mg IVP Q4H PRN PRN Reason: Nausea/Vomiting Last Admin: 04/11/18 22:53 Dose: 4 mg Oxycodone HCl (Oxycodone Immediate Release Tab) 5 mg PO Q6H PRN PRN Reason: Pain, severe (8-10) Last Admin: 04/15/18 11:33 Dose: 5 mg Pantoprazole Sodium (Protonix Inj) 40 mg IVP DAILY [facility] Last Admin: 04/15/18 09:21 Dose: 40 mg - Labs Labs: 04/15/18 05:30 04/15/18 05:30 PT 13.2 SECONDS (9.4-12.5) H 04/11/18 08:10 INR 1.14 04/11/18 08:10 APTT 28.1 Seconds (25.1-36.5) 04/11/18 08:10 - Constitutional Appears: Well, No Acute Distress, Other (Obese limiting some exam details) - Head Exam Head Exam: ATRAUMATIC, NORMAL INSPECTION - Eye Exam Eye Exam: EOMI. absent: Scleral icterus - ENT Exam ENT Exam: Mucous Membranes Moist. absent: Mucous Membranes Dry - Respiratory Exam Respiratory Exam: NORMAL BREATHING PATTERN. absent: Accessory Muscle Use, Respiratory Distress - GI/Abdominal Exam GI & Abdominal Exam: Distended (mildly), Soft, Tenderness (mildly ttp in epigastrum), Normal Bowel Sounds. absent: Bruit, Firm, Guarding, Rigid, Mass, Organomegaly, Pulsatile Mass, Rebound Assessment and Plan - Assessment and Plan (Free Text) Assessment: 42yo female with PMHx significant for obseity, diabetes and hypertension who presented with abdominal pain -Acute alcohol-induced pancreatitis: MRI/MRCP performed given persistence of pain and elevated LFTs; unremarkable -Suspect elevations 2/2 acute alcoholic pancreatitis -Elevated LFTs, mixed pattern -Obesity -DM -HTN Plan: -Analgesia and antiemetic therapy per primary service -Low fat/low fiber diet -If tolerating PO, then OK to DC from GI standpoint -Encouraged EtOH abstinence Pt discussed with Dr. Reyes; please see attestation for further recs/changes Erickson Moran, PGY-4 <Gerber Reyes - Last Filed: 04/15/18 22:52> Objective - Vital Signs/Intake and Output Vital Signs (last 24 hours): Temp Pulse Resp BP Pulse Ox 97.9 F 81 20 149/87 96 04/15/18 08:13 04/15/18 09:20 04/15/18 08:13 04/15/18 09:20 04/15/18 08:13 - Labs Labs: 04/15/18 05:30 04/15/18 05:30 PT 13.2 SECONDS (9.4-12.5) H 04/11/18 08:10 INR 1.14 04/11/18 08:10 APTT 28.1 Seconds (25.1-36.5) 04/11/18 08:10 Attending/Attestation - Attestation I have personally seen and examined this patient.: Yes I have fully participated in the care of the patient.: Yes I have reviewed all pertinent clinical information, including history, physical exam and plan: Yes Notes (Text): 04/15/18 22:52 The patient was seen and examined earlier today. Chart reviewed. Findings and management, as documented above, were discussed with Dr. Moran.
== END 2018-04-15 19:26 | disposition home or self-care (01) | DRG 204 ==
LOC: ED 07:24 → ERH 09:57 → 3RSO 11:15 → 3RNO 04-14 11:40
PROVIDERS: ADMIT Internal Medicine; ATTEND Internal Medicine
DX: K85.20 Alcohol induced acute pancreatitis without necrosis or infection (principal); N18.9 Chronic kidney disease, unspecified; E11.22 Type 2 diabetes mellitus with diabetic chronic kidney disease; I12.9 Hypertensive chronic kidney disease with stage 1 through stage 4 chronic kidney disease, or unspecified chronic kidney disease; D50.9 Iron deficiency anemia, unspecified; K59.00 Constipation, unspecified; K76.0 Fatty (change of) liver, not elsewhere classified; Y90.0 Blood alcohol level of less than 20 mg/100 ml; E66.9 Obesity, unspecified; Z68.39 Body mass index [BMI] 39.0-39.9, adult; Z79.84 Long term (current) use of oral hypoglycemic drugs; Z87.442 Personal history of urinary calculi